=== PATIENT | female | born 1965 | race African-American/Black ===

== ENCOUNTER 2016-08-14 18:03 | Emergency (ER) | payer MEDICARE ==
[2016-08-14] MEDS ORDERED: IBUPROFEN 600 MG TABLET PO ONE (18:45)
--- NOTE | 2016-08-14 18:48 | ER Document Report ---
ED Fall - General Stated Complaint: FELL/SIDE PAIN Time seen by provider: 18:46 Mode of Arrival: Ambulatory Information source: Patient TRAVEL OUTSIDE OF THE [place] IN LAST 30 DAYS: No - HPI Patient complains to provider of: trip and fall, left shoulder and left rib pain Occurred: This morning Where: Home Context: Tripped Associated symptoms: None Location of injury/pain: Chest, Shoulder Quality of pain: Achy Severity: Moderate Pain Level: 2 Notes: Patient is a 51-year-old female who presents to the emergency room status post trip and fall this morning, injuring her left shoulder and left chest wall, complains of pain with movement, palpation, deep breathing, denies head injury or loss of consciousness, no nausea or vomiting, has a history of problems to the left shoulder prior to fall but is to be exacerbated after the fall - Related data Allergies/Adverse Reactions: aspirin [Aspirin] Allergy (Verified 08/14/16 18:47) Past Medical History - General Information source: Patient - Social History Smoking Status: Never Smoker Family History: Reviewed & Not Pertinent - Past Medical History Cardiac Medical History: Reports: Hx Hypertension Pulmonary Medical History: Reports: Hx Asthma Neurological Medical History: Reports: Hx Migraine, Hx Seizures Musculoskeltal Medical History: Reports Hx Arthritis Past Surgical History: Reports: Hx Neurologic Surgery - 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 - Immunizations Hx Diphtheria, Pertussis, Tetanus Vaccination: Yes - unk Review of Systems - Review of Systems Constitutional: No symptoms reported EENT: No symptoms reported Cardiovascular: No symptoms reported Respiratory: No symptoms reported Gastrointestinal: No symptoms reported Genitourinary: No symptoms reported Female Genitourinary: No symptoms reported Musculoskeletal: See HPI Skin: No symptoms reported Hematologic/Lymphatic: No symptoms reported Neurological/Psychological: No symptoms reported -: Yes All other systems reviewed and negative Physical Exam - Vital signs Vitals: Temp Pulse Resp BP Pulse Ox 98.5 F 71 16 124/74 100 08/14/16 18:44 08/14/16 18:44 08/14/16 18:44 08/14/16 18:44 08/14/16 18:44 Interpretation: Normal - General General appearance: Appears well, Alert - HEENT Head: Normocephalic, Atraumatic Eyes: Normal Pupils: PERRL - Respiratory Respiratory status: No respiratory distress Chest status: Tender - To palpate left anterior and lateral chest wall in the lower rib cage Breath sounds: Normal Chest palpation: Normal - Cardiovascular Rhythm: Regular Heart sounds: Normal auscultation Murmur: No - Abdominal Inspection: Normal Distension: No distension Bowel sounds: Normal Tenderness: Nontender Organomegaly: No organomegaly - Back Back: Normal, Nontender - Extremities General upper extremity: Normal color, Normal temperature General lower extremity: Normal inspection, Nontender, Normal color, Normal ROM , Normal temperature, Normal weight bearing. No: Henry's sign Shoulder: Tender - To palpate over AC joint of left shoulder, pain with range of motion testing - Neurological Neuro grossly intact: Yes Cognition: Normal Orientation: AAOx4 [place] Coma Scale Eye Opening: Spontaneous [place] Coma Scale Verbal: Oriented [place] Coma Scale Motor: Obeys Commands [place] Coma Scale Total: 15 Speech: Normal Motor strength normal: LUE, RUE, LLE, RLE Sensory: Normal - Psychological Associated symptoms: Normal affect, Normal mood - Skin Skin Temperature: Warm Skin Moisture: Dry Skin Color: Normal Course - Re-evaluation Re-evalutation: 08/14/16 19:18 Physical exam findings consistent with contusion and left shoulder strain, imaging shows no evidence of fracture or dislocation, patient will be discharged with pain medication and information for follow-up, advised to return if symptoms worsen, patient acknowledges understanding and agreement with this plan - Vital Signs Vital signs: Temp Pulse Resp BP Pulse Ox 98.5 F 71 16 124/74 100 08/14/16 18:44 08/14/16 18:44 08/14/16 18:44 08/14/16 18:44 08/14/16 18:44 - Diagnostic Test Radiology reviewed: Image reviewed, Reports reviewed Discharge - Discharge Clinical Impression: Left shoulder strain Qualifiers: Encounter type: initial encounter Qualified Code(s): S46.912A - Strain of unspecified muscle, fascia and tendon at shoulder and upper arm level, left arm , initial encounter Contusion of rib on left side Qualifiers: Encounter type: initial encounter Qualified Code(s): S20.212A - Contusion of left front wall of thorax, initial encounter Condition: Stable Disposition: HOME, SELF-CARE Instructions: Shoulder Injury ([facility]), Rib Contusion ([facility]), Oral Narcotic Medication ([facility]) Additional Instructions: Follow up with your primary care provider in one to 2 days. Return to the emergency room immediately if symptoms worsen or any additional concerns. Prescriptions: Hydrocodone/Acetaminophen [Hydrocodon-Acetaminophen 5-325] 1 each PO Q6 #20 tablet Forms: Return to Work
[2016-08-14 18:51] VITALS: BP 124/74
[2016-08-14] MEDS ORDERED: HYDROCODONE/ACETAMINOPHEN 5-325 MG 6 TAB/DSPK PO PRN (19:18)
== END 2016-08-14 19:33 | disposition home or self-care (01) ==
LOC: ER 18:03
DX: S46.912A Strain of unspecified muscle, fascia and tendon at shoulder and upper arm level, left arm, initial encounter (principal); S20.212A Contusion of left front wall of thorax, initial encounter; R52 Pain, unspecified; M25.512 Pain in left shoulder; R07.81 Pleurodynia; W19.XXXA Unspecified fall, initial encounter
CPT/HCPCS: 99284; 71101; 73030; A9270 ×2

== ENCOUNTER 2017-01-07 11:17 | Emergency (ER) | payer MEDICARE, MEDICAID ==
--- NOTE | 2017-01-07 12:19 | ER Document Report ---
ED Medical Screen (RME) - General Chief Complaint: Chest Pain Stated Complaint: CHEST PAIN Time Seen by Provider: 01/07/17 12:17 Mode of Arrival: Ambulatory Information source: Patient Notes: 51-year-old female with a history of hypertension, asthma, arthritis, seizures and migraines who presents to the emergency room with intermittent left chest pain radiating down the arm sometimes associated with shortness of breath. Patient cannot say whether there is an exertional component. She states the pain happens at any time. She does have an EKG which is sinus rhythm there are inverted T waves anteriorly which are old. TRAVEL OUTSIDE OF THE [place] IN LAST 30 DAYS: No - Related Data Allergies/Adverse Reactions: aspirin [Aspirin] Allergy (Verified 08/14/16 18:47) Past Medical History - Social History Chew tobacco use (# tins/day): No Frequency of alcohol use: None Drug Abuse: None - Past Medical History Cardiac Medical History: Reports: Hx Hypertension Pulmonary Medical History: Reports: Hx Asthma Neurological Medical History: Reports: Hx Migraine, Hx Seizures Renal/ Medical History: Denies: Hx Peritoneal Dialysis Musculoskeltal Medical History: Reports Hx Arthritis Past Surgical History: Reports: Hx Neurologic Surgery - 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 - Immunizations Hx Diphtheria, Pertussis, Tetanus Vaccination: Yes - unk Physical Exam - Vital signs Vitals: Temp Pulse Resp BP Pulse Ox 98.5 F 75 16 127/69 H 97 01/07/17 11:27 01/07/17 11:27 01/07/17 11:27 01/07/17 11:27 01/07/17 11:27 Course - Vital Signs Vital signs: Temp Pulse Resp BP Pulse Ox 98.5 F 75 16 127/69 H 97 01/07/17 11:27 01/07/17 11:27 01/07/17 11:27 01/07/17 11:27 01/07/17 11:27
--- NOTE | 2017-01-07 12:45 | ER Document Report ---
ED Cardiac - General Mode of Arrival: Ambulatory TRAVEL OUTSIDE OF THE [place] IN LAST 30 DAYS: No <VINICIUS MACIAS - Last Filed: 01/07/17 12:40> <ADDI MAGAÑA - Last Filed: 01/07/17 15:07> - General Chief Complaint: Chest Pain Stated Complaint: CHEST PAIN Time Seen by Provider: 01/07/17 12:17 Notes: Patient is a 51 year old female who presents to the ED with complaints of intermittent chest pain x2 days. Patient also complains of left arm pain that has worsened in the past 3 days. Patient denies any known injury. No other concerns or complaints. PCP: Dr. Moe (VINICIUS MACIAS) - Related Data Allergies/Adverse Reactions: aspirin [Aspirin] Allergy (Verified 01/07/17 14:44) Past Medical History - General Information source: Patient - Social History Smoking Status: Never Smoker Chew tobacco use (# tins/day): No Frequency of alcohol use: None Drug Abuse: None Family History: Reviewed & Not Pertinent Patient has suicidal ideation: No Patient has homicidal ideation: No - Past Medical History Cardiac Medical History: Reports: Hx Hypertension, Hx Pulmonary Embolism Pulmonary Medical History: Reports: Hx Asthma Neurological Medical History: Reports: Hx Migraine, Hx Seizures Renal/ Medical History: Denies: Hx Peritoneal Dialysis Musculoskeltal Medical History: Reports Hx Arthritis Past Surgical History: Reports: Hx Neurologic Surgery - 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 - Immunizations Hx Diphtheria, Pertussis, Tetanus Vaccination: Yes - unk <VINICIUS MACIAS - Last Filed: 01/07/17 12:40> Review of Systems - Review of Systems Constitutional: No symptoms reported EENT: No symptoms reported Cardiovascular: See HPI, Chest pain Respiratory: No symptoms reported Gastrointestinal: No symptoms reported Genitourinary: No symptoms reported Female Genitourinary: No symptoms reported Musculoskeletal: See HPI, Other - left arm pain Skin: No symptoms reported Hematologic/Lymphatic: No symptoms reported Neurological/Psychological: No symptoms reported <VINICIUS MACIAS - Last Filed: 01/07/17 12:40> Physical Exam - Vital signs Interpretation: Normal - General General appearance: Appears well, Alert In distress: None - HEENT Head: Normocephalic, Atraumatic Eyes: Normal Extraocular movements intact: Yes Pupils: PERRL - Respiratory Respiratory status: No respiratory distress Chest status: Tender - posterior chest wall very tender Breath sounds: Normal Chest palpation: Tender - chest wall tenderness - Cardiovascular Rhythm: Regular Heart sounds: Normal auscultation Murmur: No - Abdominal Inspection: Normal Distension: No distension Tenderness: Nontender - Back Back: Normal, Nontender - Extremities General upper extremity: Normal inspection, Normal ROM, Other - posterior right cervical muscle tender to palpation, right deltoid and trapezius muscles very tender to palpation, right forearm very tender to palpation; joints are not swollen, no effusions. No: Edema General lower extremity: Normal inspection, Normal ROM. No: Edema - Neurological Neuro grossly intact: Yes Cognition: Normal Orientation: AAOx4 [place] Coma Scale Eye Opening: Spontaneous [place] Coma Scale Verbal: Oriented [place] Coma Scale Motor: Obeys Commands [place] Coma Scale Total: 15 Speech: Normal - Psychological Associated symptoms: Normal affect, Normal mood - Skin Skin Temperature: Warm Skin Moisture: Dry Skin Color: Normal <VINICIUS MACIAS - Last Filed: 01/07/17 12:40> - Extremities General upper extremity: Other - posterior cervical muscles tender to palpation , both deltoid and trapezius muscles very tender to palpation, left forearm very tender to palpation; joints are not swollen, no effusions <ADDI MAGAÑA - Last Filed: 01/07/17 15:07> - Vital signs Vitals: Temp Pulse Resp BP Pulse Ox 98.5 F 75 16 127/69 H 97 01/07/17 11:27 01/07/17 11:27 01/07/17 11:27 01/07/17 11:27 01/07/17 11:27 Course - Laboratory Result Diagrams: 01/07/17 13:29 01/07/17 13:29 <ADDI MAGAÑA - Last Filed: 01/07/17 15:07> - Vital Signs Vital signs: Temp Pulse Resp BP Pulse Ox 98.6 F 75 11 L 115/77 100 01/07/17 14:00 01/07/17 11:27 01/07/17 14:01 01/07/17 14:00 01/07/17 14:01 - Laboratory Laboratory results interpreted by me: 01/07/17 01/07/17 01/07/17 12:05 13:29 13:29 Hgb 11.8 L Hct 35.3 L Potassium 3.4 L Total Protein 8.4 H Ur Leukocyte Esterase TRACE H Discharge <JESSICA MACIASANDRA - Last Filed: 01/07/17 12:40> <ADDI MAGAÑA - Last Filed: 01/07/17 15:07> - Discharge Clinical Impression: Chest wall pain, Trapezius muscle pain, Deltoid muscle pain Condition: Stable Disposition: HOME, SELF-CARE Additional Instructions: Chest Wall Pain: Your chest pain has been diagnosed as coming from the chest wall. This is often caused by straining the muscles or joints in the chest during physical activity, direct trauma, coughing, or vigorous vomiting. Persons with arthritis are especially prone to this type of pain, due to inflammation of the cartilage joints near the breast bone. Occasionally, no cause can be found. Rest from strenuous physical activity. This kind of chest pain is usually made worse by movement of the chest. Depending on the symptoms, we may prescribe medicine for pain, muscle relaxation, and antiinflammatory effects. If the pain is new, and seems to be due to muscle strain, cold packs can help. Otherwise, apply gentle warmth to the painful area for 15 minutes every hour or two. You should contact the doctor immediately if things change. Further evaluation is needed if you develop a fever or cough, if the nature of the pain changes, or if you become short of breath. //////////////////////////////////////////////////////////////////////////////// //////////////////////////////////////////////////////////////////////////////// /////////////////// Your EKG, chest x-ray, and lab work are all unremarkable. Your pain seems to be coming from the muscles and your chest wall and your neck and shoulders. The management of this should include moist heat, rest, and Tylenol for pain. Follow-up with your primary care provider if not improving. RETURN TO THE EMERGENCY ROOM IF ANY NEW OR WORSENING SYMPTOMS. Referrals: SANTY MOE MD [Primary Care Provider] - Follow up as needed Scribe Attestation: 01/07/17 15:00 I personally performed the services described in the documentation, reviewed and edited the documentation which was dictated to the scribe in my presence, and it accurately records my words and actions. (ADDI MAGAÑA) Scribe Documentation - Scribe Written by Ann:: ann Dye, 01/07/2017, 1246 acting as scribe for :: Antonietta <VINICIUS MACIAS - Last Filed: 01/07/17 12:40>
[2017-01-07 13:05] LABS: APPEARANCE,URINE SLIGHTLY-CLOUDY; BILIRUBIN,URINE NEGATIVE (NEGATIVE); GLUCOSE, URINE NEGATIVE (NEGATIVE); KETONES,URINE NEGATIVE (NEGATIVE); LEUKOCYTE ESTERASE,URINE TRACE (NEGATIVE); NITRITE,URINE NEGATIVE (NEGATIVE); PROTEIN,URINE NEGATIVE (NEGATIVE); URINE SPECIFIC GRAVITY 1.017; UROBILINOGEN,URINE NEGATIVE mg/dL (<2.0)
--- NOTE | 2017-01-07 13:23 | RADIOLOGY REPORT (SQ) ---
EXAM DESCRIPTION: CHEST SINGLE VIEW COMPLETED DATE/TIME: 01/07/2017 1:07 pm REASON FOR STUDY: cp COMPARISON: 09/08/2015 EXAM PARAMETERS: NUMBER OF VIEWS: One view. TECHNIQUE: Single frontal radiographic view of the chest acquired. RADIATION DOSE: NA LIMITATIONS: None. FINDINGS: LUNGS AND PLEURA: Stable scarring left lung base. No new opacities, masses or pneumothora x. No pleural effusion. MEDIASTINUM AND HILAR STRUCTURES: No masses. Contour normal. HEART AND VASCULAR STRUCTURES: Heart normal in size. Normal vasculature. BONES: No acute findings. HARDWARE: None in the chest. OTHER: No other significant finding. IMPRESSION: NO ACUTE RADIOGRAPHIC FINDING IN THE CHEST. NO SIGNIFICANT CHANGE FROM PRIOR STUDY. TECHNICAL DOCUMENTATION: JOB ID: [id number]
[2017-01-07 13:44] LABS: HEMATOCRIT 35.3 % (36.0-47.0); HEMOGLOBIN 11.8 g/dL (12.0-15.5); HGB HCT DIFFERENCE 0.1; MEAN CORPUSCULAR HEMOGLOBIN 30.7 pg (27.0-33.4); MEAN CORPUSCULAR HGB CONC 33.6 g/dL (32.0-36.0); MEAN CORPUSCULAR VOLUME 92 fl (80-97); RED BLOOD COUNT 3.85 10^6/uL (3.72-5.28); RED CELL DISTRIBUTION WIDTH 13.4 % (11.5-14.0)
[2017-01-07 13:45] LABS: ABSOLUTE EOSINOPHILS # (AUTO) 0.2 10^3/uL (0.0-0.6); ABSOLUTE LYMPHOCYTES (AUTO) 1.5 10^3/uL (0.5-4.7); ABSOLUTE MONOCYTES (AUTO) 0.3 10^3/uL (0.1-1.4); ABSOLUTE NEUT (AUTO) 3.9 10^3/uL (1.7-8.2); BASOPHILS % (AUTO) 0.5 % (0-2); EOSINOPHILS % (AUTO) 2.8 % (0-6); LYMPHOCYTES % (AUTO) 25.3 % (13-45); MONOCYTES % (AUTO) 5.8 % (3-13); SEGMENTED NEUTROPHILS % (AUTO) 65.6 % (42-78)
--- NOTE | 2017-01-07 13:51 | EKG REPORT ---
SEVERITY:- ABNORMAL ECG - SINUS RHYTHM ABNORMAL T, CONSIDER ISCHEMIA, ANT-LAT LEADS : Confirmed by: Chantale Vance MD 07-Jan-2017 13:50:01
[2017-01-07 14:06] LABS: ALANINE AMINOTRANSFERASE 31 U/L (9-52); ALKALINE PHOSPHATASE 111 U/L (38-126); ANION GAP 9 (5-19); ASPARTATE AMINO TRANSFERASE 21 U/L (14-36); BILIRUBIN,DIRECT 0.3 mg/dL (0.0-0.4); BILIRUBIN,TOTAL 0.6 mg/dL (0.2-1.3); BLOOD UREA NITROGEN 12 mg/dL (7-20); CALCIUM 9.4 mg/dL (8.4-10.2); CARBON DIOXIDE 30 mmol/L (22-30); CHLORIDE 102 mmol/L (98-107); CREATINE KINASE 96 U/L (30-135); CREATININE RESULT 0.85 mg/dL (0.52-1.25); GLUCOSE 86 mg/dL (75-110); POTASSIUM 3.4 mmol/L (3.6-5.0); SODIUM 141.2 mmol/L (137-145); TOTAL PROTEIN 8.4 g/dL (6.3-8.2)
[2017-01-07 14:19] LABS: CREATINE KINASE MB 0.31 ng/mL (<4.55); TROPONIN I < 0.012 ng/mL
[2017-01-07 15:15] VITALS: BP 103/61
== END 2017-01-07 15:15 | disposition home or self-care (01) ==
LOC: ER 11:17
DX: R07.89 Other chest pain (principal); M79.1 Myalgia; I10 Essential (primary) hypertension; Z88.6 Allergy status to analgesic agent; Z86.711 Personal history of pulmonary embolism; Z87.820 Personal history of traumatic brain injury
CPT/HCPCS: 36415; 71010; 80053; 81001; 82550; 82553; 84484; 85025; 85379; 93005; 93010; 99285

== ENCOUNTER 2017-02-25 12:37 | Emergency (ER) | payer MEDICARE, MEDICAID ==
[2017-02-25 12:44] VITALS: BP 128/81
--- NOTE | 2017-02-25 13:14 | ER Document Report ---
ED Seizure - General Chief Complaint: Probable Seizure Stated Complaint: POSSIBLE SEIZURE Time Seen by Provider: 02/25/17 13:02 Mode of Arrival: Ambulatory Information source: Patient, [facility] Records Notes: This 51-year-old female patient comes emergency room complaining of probable seizure in her sleep. She does have seizure disorder since a traumatic brain injury in the past. She takes Vimpat 200 mg twice daily but has run out of the medication for 3 days. She reports the medication is at the pharmacy but her doctor did not send in the prescription so she cannot get the prescription filled. 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 She woke up sore and aching on the right side of her body with a headache. She reports this is consistent with having had a seizure where she will turn her head to the right and jerk. Other than soreness and headache related to the seizure, she feels well and really only needs the Vimpat prescription so she can get started on medication today. - Related Data Allergies/Adverse Reactions: aspirin [Aspirin] Allergy (Verified 02/25/17 12:41) Past Medical History - General Information source: Patient, [facility] Records - Social History Smoking Status: Never Smoker Cigarette use (# per day): No Chew tobacco use (# tins/day): No Smoking Education Provided: No Frequency of alcohol use: None Drug Abuse: None Occupation: Works at [employer] Lives with: Family Family History: Reviewed & Not Pertinent - Past Medical History Cardiac Medical History: Reports: Hx Hypertension, Hx Pulmonary Embolism Pulmonary Medical History: Reports: Hx Asthma Neurological Medical History: Reports: Hx Migraine, Hx Seizures, Other - TBI Endocrine Medical History: Reports: None GI Medical History: Reports: None Musculoskeltal Medical History: Reports Hx Arthritis Psychiatric Medical History: Reports: None Past Surgical History: Reports: Hx Neurologic Surgery - 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 - Immunizations Hx Diphtheria, Pertussis, Tetanus Vaccination: No - unk Review of Systems - Review of Systems Constitutional: No symptoms reported EENT: No symptoms reported Cardiovascular: No symptoms reported Respiratory: No symptoms reported Gastrointestinal: No symptoms reported Genitourinary: No symptoms reported Female Genitourinary: Post menopausal Musculoskeletal: See HPI Skin: No symptoms reported Hematologic/Lymphatic: No symptoms reported Neurological/Psychological: Seizure Physical Exam - Vital signs Vitals: Temp Pulse Resp BP Pulse Ox 98.4 F 76 20 128/81 H 98 02/25/17 12:43 02/25/17 12:43 02/25/17 12:43 02/25/17 12:43 02/25/17 12:43 Interpretation: Normal - General General appearance: Appears well, Alert In distress: None - HEENT Head: Normocephalic, Atraumatic Eyes: Normal Pupils: PERRL Mouth/Lips: No: Laceration Neck: Other - Right posterior cervical and trapezius muscles very tender to palpate. - Respiratory Respiratory status: No respiratory distress Breath sounds: Normal - Cardiovascular Rhythm: Regular Heart sounds: Normal auscultation Murmur: No - Abdominal Inspection: Obese Bowel sounds: Normal Tenderness: Nontender - Back Back: Tender - Right trapezius muscle tenderness - Extremities General upper extremity: Other - Some right shoulder tenderness General lower extremity: Normal inspection - Neurological Neuro grossly intact: Yes - Psychological Associated symptoms: Normal affect, Normal mood - Skin Skin Temperature: Warm Skin Moisture: Dry Skin Color: Normal Course - Vital Signs Vital signs: Temp Pulse Resp BP Pulse Ox 98.4 F 76 20 128/81 H 98 02/25/17 12:43 02/25/17 12:43 02/25/17 12:43 02/25/17 12:43 02/25/17 12:43 Discharge - Discharge Clinical Impression: Seizure, Has run out of medications Condition: Stable Disposition: HOME, SELF-CARE Additional Instructions: Get the prescription for your Vimpat filled and start taking it. Rest today. Follow-up with your doctor if any problems. RETURN TO THE EMERGENCY ROOM IF ANY NEW OR WORSENING SYMPTOMS. Prescriptions: Lacosamide [Vimpat] 200 mg PO Q12 #60 tablet
== END 2017-02-25 13:14 | disposition home or self-care (01) ==
LOC: ER 12:37
DX: R56.9 Unspecified convulsions (principal); M79.1 Myalgia; R51 Headache; Z87.820 Personal history of traumatic brain injury; Z88.6 Allergy status to analgesic agent; I10 Essential (primary) hypertension; Z86.711 Personal history of pulmonary embolism; Z91.14 Patient's other noncompliance with medication regimen
CPT/HCPCS: 99281

== ENCOUNTER 2017-05-17 09:10 | Emergency (ER) | payer MEDICARE, MEDICAID ==
[2017-05-17] MEDS ORDERED: ACETAMINOPHEN 325 MG TABLET PO ONE (09:46)
--- NOTE | 2017-05-17 10:38 | RADIOLOGY REPORT (SQ) ---
EXAM DESCRIPTION: T SPINE AP/LAT COMPLETED DATE/TIME: 05/17/2017 10:25 am REASON FOR STUDY: low back pain COMPARISON: None. NUMBER OF VIEWS: Two views. TECHNIQUE: AP and lateral radiographic images acquired of the thoracic spine. LIMITATIONS: None. FINDINGS: MINERALIZATION: Normal. ALIGNMENT: Normal. No scoliosis. VERTEBRAE: No fracture or bone lesion. Maintained height, normal segmentation. DISCS: No significant loss of height or significant narrowing. No large osteophytes. HARDWARE: None in the spine. MEDIASTINUM AND SOFT TISSUES: Normal heart size and aortic contour. No soft tissue abnormality. VISUALIZED LUNG BABIN: Clear. OTHER: No other significant finding. IMPRESSION: NO SIGNIFICANT RADIOGRAPHIC FINDING IN THE THORACIC SPINE. TECHNICAL DOCUMENTATION: JOB ID: [id number] [employer]- All Rights Reserved
--- NOTE | 2017-05-17 10:40 | RADIOLOGY REPORT (SQ) ---
EXAM DESCRIPTION: L SPINE WHOLE COMPLETED DATE/TIME: 05/17/2017 10:25 am REASON FOR STUDY: low back pain COMPARISON: None. NUMBER OF VIEWS: Five views including obliques. TECHNIQUE: AP, lateral, oblique, and sacral radiographic images acquired of the lumbar spine. LIMITATIONS: None. FINDINGS: MINERALIZATION: Normal. SEGMENTATION: Normal. No transitional anatomy. ALIGNMENT: Normal. VERTEBRAE: Maintained height. No fracture or worrisome bone lesion. DISCS: Preserved height. No significant osteophytes or end plate irregularity. POSTERIOR ELEMENTS: Pedicles and facets are intact. No pars defect or posterior arch defects. HARDWARE: None in the spine. PARASPINAL SOFT TISSUES: Normal. PELVIS: Intact as visualized. No fractures or worrisome bone lesions. SI joints intact. OTHER: No other significant finding. IMPRESSION: No significant findings. TECHNICAL DOCUMENTATION: JOB ID: [id number] [employer]- All Rights Reserved
[2017-05-17 10:43] LABS: APPEARANCE,URINE SLIGHTLY-CLOUDY; BILIRUBIN,URINE NEGATIVE (NEGATIVE); GLUCOSE, URINE NEGATIVE (NEGATIVE); KETONES,URINE NEGATIVE (NEGATIVE); LEUKOCYTE ESTERASE,URINE SMALL (NEGATIVE); NITRITE,URINE NEGATIVE (NEGATIVE); PROTEIN,URINE NEGATIVE (NEGATIVE); URINE SPECIFIC GRAVITY 1.018; UROBILINOGEN,URINE NEGATIVE mg/dL (<2.0)
--- NOTE | 2017-05-17 11:20 | ER Document Report ---
HPI - HPI Patient complains to provider of: Low back pain, left upper arm pain Onset: Last week Onset/Duration: Persistent Quality of pain: Achy Pain Level: 3 Context: Patient presents complaining of right lower back pain for the past week. Patient states that her pain symptoms are worse at night when she lies down. Patient denies any urinary retention or incontinence. Patient denies any dysuria. Patient denies any fever. Patient additionally reports left upper extremity arm pain that radiates down to the level of her wrist that has been off and on for several years. Patient denies any new injury to the left arm. Patient states pain is typical of flareups that she has had in the past. Associated Symptoms: Other - Left upper extremity pain, right lower back pain. denies: Fever, Headache Exacerbated by: Supine, Movement Relieved by: Denies Similar symptoms previously: Yes Recently seen / treated by doctor: No - ROS ROS below otherwise negative: Yes Systems Reviewed and Negative: Yes All other systems reviewed and negative - CONSTITUTIONAL Constitutional: DENIES: Fever, Chills - EENT EENT: DENIES: Sore Throat, Ear Pain, Eye problems - NEURO Neurology: DENIES: Headache, Weakness, Vision blurred, Dizzinesss / Vertigo - CARDIOVASCULAR Cardiovascular: DENIES: Chest pain - RESPIRATORY Respiratory: DENIES: Trouble Breathing, Coughing - GASTROINTESTINAL Gastrointestinal: DENIES: Abdominal Pain, Black / Bloody Stools - URINARY Urinary: DENIES: Dysuria, Urgency, Frequency - REPRODUCTIVE Reproductive: DENIES: : - MUSCULOSKELETAL Musculoskeletal: REPORTS: Extremity pain - lt shoulder/arm, Back Pain. 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 Family History: Reviewed & Not Pertinent Patient has suicidal ideation: No Patient has homicidal ideation: No - Past Medical History Cardiac Medical History: Reports: Hx Hypertension, Hx Pulmonary Embolism Pulmonary Medical History: Reports: Hx Asthma Neurological Medical History: Reports: Hx Migraine, Hx Seizures Renal/ Medical History: Denies: Hx Peritoneal Dialysis Musculoskeltal Medical History: Reports Hx Arthritis Past Surgical History: Reports: 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 HEAD: Atraumatic, normocephalic. EYES: sclera clear, anicteric, conjunctiva are normal. ENT: nares patent, Moist mucous membranes. NECK: Normal range of motion, supple no lymphadenopathy LUNGS: respirations unlabored HEART: Regular rate and rhythm without murmurs EXTREMITIES: Normal range of motion, no pitting or edema. No cyanosis. Gait normal, pt ambulates without difficulty. left upper extremity tenderness with range of motion of left shoulder joint, no crepitus, no deformity, no dislocation. BACK: Right thoracolumbar back tenderness, no midline tenderness, no deformities or step-offs. No CVA tenderness. No cervical midline tenderness, step-off or deformity NEUROLOGICAL: Cranial nerves grossly intact. Normal speech, normal gait. No saddle anesthesia. Normal strength to bilateral upper and lower extremities PSYCH: Normal mood, normal affect. SKIN: Warm, Dry, normal turgor, no rashes or lesions noted. - INFECTION CONTROL TRAVEL OUTSIDE OF THE [place] IN LAST 30 DAYS: No - RESPIRATORY O2 Sat by Pulse Oximetry: 97 Course - Vital Signs Vital signs: Temp Pulse Resp BP Pulse Ox 98.1 F 73 20 122/75 97 05/17/17 09:29 05/17/17 09:29 05/17/17 09:29 05/17/17 09:29 05/17/17 09:29 - Laboratory Laboratory results interpreted by me: 05/17/17 09:50 Urine Blood SMALL H Ur Leukocyte Esterase SMALL H 05/17/17 21:12 Labs- Entire Visit 05/17/17 09:50 Urine Color YELLOW Urine Appearance SLIGHTLY-CLOUDY Urine pH 5.0 Ur Specific [place] 1.018 Urine Protein NEGATIVE Urine Glucose (UA) NEGATIVE Urine Ketones NEGATIVE Urine Blood SMALL H Urine Nitrite NEGATIVE Urine Bilirubin NEGATIVE Urine Urobilinogen NEGATIVE Ur Leukocyte Esterase SMALL H Urine WBC (Auto) 6 Urine RBC (Auto) 3 Urine Bacteria (Auto) TRACE Squamous Epi Cells Auto 1 Urine Mucus (Auto) RARE Urine Ascorbic Acid NEGATIVE - Diagnostic Test Radiology reviewed: Reports reviewed Discharge - Discharge Clinical Impression: Radicular pain in left arm Low back strain Qualifiers: Encounter type: initial encounter Qualified Code(s): S39.012A - Strain of muscle, fascia and tendon of lower back, initial encounter UTI (urinary tract infection) Qualifiers: Urinary tract infection type: site unspecified Hematuria presence: with hematuria Qualified Code(s): N39.0 - Urinary tract infection, site not specified Condition: Stable Disposition: HOME, SELF-CARE Instructions: Ice Packs ([facility]), Low Back Pain ([facility]), Oral Narcotic Medication ( [facility]), Radiculopathy ([facility]), Urinary Tract Infection ([facility]), Warm Packs ([facility]) Additional Instructions: Return immediately for any new or worsening symptoms Followup with your primary care provider, call tomorrow to make a followup appointment Follow-up with an orthopedic doctor for further evaluation of left upper extremity pain. Avoid heavy lifting Prescriptions: Cephalexin Monohydrate [Keflex 500 mg Capsule] 500 mg PO BID 7 Days capsule Hydrocodone/Acetaminophen [[place] 5-325 Tablet] 1 each PO Q4 PRN #15 tablet PRN Reason: Forms: Return to Work Referrals: SANTY CONTI MD [Primary Care Provider] - Follow up tomorrow [facility] [Provider Group] - Follow up as needed
[2017-05-17 11:34] VITALS: BP 116/73
== END 2017-05-17 11:35 | disposition home or self-care (01) ==
LOC: ER 09:10
DX: S39.012A Strain of muscle, fascia and tendon of lower back, initial encounter (principal); N39.0 Urinary tract infection, site not specified; M54.10 Radiculopathy, site unspecified; M79.602 Pain in left arm; X58.XXXA Exposure to other specified factors, initial encounter
CPT/HCPCS: 99283; 81001; 72110; 72070; A9270

== ENCOUNTER 2017-11-24 19:58 | Emergency (ER) | payer MEDICARE, MEDICAID ==
--- NOTE | 2017-11-24 22:14 | ER Document Report ---
HPI - HPI Patient complains to provider of: cough, headache, sinus pressure Pain Level: 4 Context: Patient is a 52-year-old female comes emergency department for chief complaint of congestion, headaches, cough for 1 week, she states her cough has become productive and worse and she became concerned and came in to be evaluated for possible pneumonia. She denies fever or chills, difficulty breathing. She denies smoking. She has a history of asthma but denies any wheezing, is not using her albuterol more than usual. Remaining medical history includes seizures and hypertension which she is medicated for. - REPRODUCTIVE Reproductive: DENIES: : Past Medical History - General Information source: Patient - Social History Smoking Status: Never Smoker Frequency of alcohol use: None Drug Abuse: None Lives with: Alone Family History: Reviewed & Not Pertinent - Past Medical History Cardiac Medical History: Reports: Hx Hypertension, Hx Pulmonary Embolism Pulmonary Medical History: Reports: Hx Asthma Neurological Medical History: Reports: Hx Migraine, Hx Seizures Renal/ Medical History: Denies: Hx Peritoneal Dialysis Musculoskeltal Medical History: Reports Hx Arthritis Past Surgical History: Reports: Hx Neurologic Surgery - 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 IN LAST 30 DAYS: No - HEENT HEENT: Atraumatic. negative: Normal ENT Exam - Patient was noted tenderness of the maxillary sinuses, no noted tenderness over the frontal sinuses, minimal erythema of the posterior pharynx with no tonsillar swelling, no uvular edema, no airway compromise. Normal oropharyngeal exam otherwise., Normocephalic - Patient has a scar on the mid upper forehead extending up to the scalp vertically, otherwise unremarkable, Tympanic Membrane Red, Tympanic Membrane Bulging - NECK Neck: Normal Inspection. negative: Lymphadenopathy-Left, Lymphadenopathy-Right - RESPIRATORY Respiratory: Breath Sounds Normal, No Respiratory Distress, Other - No signs of distress. Nonproductive cough. No rales, rhonchi, or wheezing. - CARDIOVASCULAR Cardiovascular: Regular Rate, Regular Rhythm - GI/ABDOMEN Gastrointestinal: Abdomen Soft, Abdomen Non-Tender - BACK Back: Normal Inspection - NEURO Level of Consciousness: Awake, Alert, Appropriate - DERM Integumentary: Warm, Dry, No Rash Course - Re-evaluation Re-evalutation: Chest x-ray unremarkable. Patient stating she cannot sleep because of coughing at night, she is coughed so hard she threw up once. She has no tachypnea, wheezing, respiratory distress, hypoxia. She is very tender sinuses. Appears to be sinusitis with bronchitis, treating with doxycycline because of one-week duration, patient has asthma treatments at home, providing with symptom management for coughing, discussed follow-up and return precautions, patient states understanding and agreement. - Vital Signs Vital signs: Temp Pulse Resp BP Pulse Ox 98.8 F 72 20 118/62 97 11/24/17 20:03 11/24/17 20:03 11/24/17 20:03 11/24/17 20:03 11/24/17 20:03 Discharge - Discharge Clinical Impression: Productive cough Sinusitis Qualifiers: Sinusitis location: maxillary Chronicity: acute Recurrence: non-recurrent Qualified Code(s): J01.00 - Acute maxillary sinusitis, unspecified Condition: Stable Disposition: HOME, SELF-CARE Additional Instructions: Your examination and workup are most consistent with sinusitis and bronchitis. No pneumonia seen. You have been started on antibiotics to cover for this sinus infection, continue albuterol as needed, take the medication prescribed at night for cough if needed, take Tessalon during the day as prescribed if needed for cough. Follow-up with primary care. Return if you worsen including difficulty breathing, spiking fever, severe headache, or any other concerning symptoms. Prescriptions: Hydrocodone Bit/Homatropine [Hycodan Syrup 5-1.5 mg/5 ml Ud Cup] 5 ml PO Q4HP PRN #120 ml PRN Reason: Benzonatate [Tessalon Perles 100 mg Capsule] 100 mg PO ASDIR PRN #20 capsule PRN Reason: Doxycycline Hyclate 100 mg PO BID #14 capsule Forms: Return to Work Referrals: SANTY CONTI MD [Primary Care Provider] - Follow up as needed
--- NOTE | 2017-11-24 22:42 | RADIOLOGY REPORT (SQ) ---
EXAM DESCRIPTION: XR CHEST 2 VIEWS CLINICAL HISTORY: 52 years Female, productive cough for 1 week COMPARISON: None. FINDINGS: Adequate lung volume, clear parenchyma, small atelectasis or scar of the left base, eventration of the right hemidiaphragm, normal cardiac silhouette, electronic stimulator at the left upper hemithorax with nuchal leads, and intact bony thorax. IMPRESSION: No acute cardiopulmonary findings.
[2017-11-24] MEDS ORDERED: HYDROCODONE/ACETAMINOPHEN 5-325 MG (6 TAB/ER DISP) PO PRN (23:41)
[2017-11-24] MEDS ORDERED: DOXYCYCLINE HYCLATE 100 MG TABLET PO ONE (23:41)
[2017-11-24 23:53] VITALS: BP 120/70
== END 2017-11-24 23:51 | disposition home or self-care (01) ==
LOC: ER 19:58
DX: R05 Cough (principal); J01.00 Acute maxillary sinusitis, unspecified; R51 Headache; J45.909 Unspecified asthma, uncomplicated; I10 Essential (primary) hypertension; R56.9 Unspecified convulsions; Z79.899 Other long term (current) drug therapy
CPT/HCPCS: 99283; 71046; A9270 ×2

== ENCOUNTER 2017-12-22 14:05 | Emergency (ER) | payer MEDICARE, MEDICAID ==
--- NOTE | 2017-12-22 14:35 | ER Document Report ---
ED Seizure - General Chief Complaint: Probable Seizure Stated Complaint: POSSIBLE SEIZURE Time Seen by Provider: 12/22/17 14:19 Notes: The patient is a 52-year-old female, past medical history seizure disorder, chronic headaches, hypertension, presents after a possible seizure overnight. She woke up and said her speech is slow. She says this is common for her after seizures, but it does not usually last this long. She is also having her usual posterior headache. She is prescribed Imitrex and tizanidine, but she does not think these medications work. Patient has not missed any doses of Vimpat or Keppra and her neurologist is Dr. Aldridge. She denies loss of bowel or bladder , fevers, blurry vision, focal weakness, numbness, tingling, neck stiffness, chest pain, shortness of breath or tongue injury. - Related Data Allergies/Adverse Reactions: aspirin [Aspirin] Allergy (Verified 12/22/17 14:07) Past Medical History - General Information source: Patient - Social History Smoking Status: Never Smoker Chew tobacco use (# tins/day): No Frequency of alcohol use: None Drug Abuse: None Family History: Reviewed & Not Pertinent Patient has suicidal ideation: No Patient has homicidal ideation: No - Past Medical History Cardiac Medical History: Reports: Hx Hypertension, Hx Pulmonary Embolism Pulmonary Medical History: Reports: Hx Asthma Neurological Medical History: Reports: Hx Migraine, Hx Seizures Renal/ Medical History: Denies: Hx Peritoneal Dialysis Musculoskeltal Medical History: Reports Hx Arthritis Past Surgical History: Reports: Hx Neurologic Surgery - 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 - Immunizations Hx Diphtheria, Pertussis, Tetanus Vaccination: No - unk Review of Systems - Review of Systems Notes: REVIEW OF SYSTEMS: CONSTITUTIONAL: -fevers, -chills EENT: -eye pain, -difficulty swallowing, -nasal congestion CARDIOVASCULAR: -chest pain, -syncope. RESPIRATORY: -cough, -SOB GASTROINTESTINAL: -abdominal pain, -nausea, -vomiting, -diarrhea GENITOURINARY: -dysuria, -hematuria MUSCULOSKELETAL: -back pain, -neck pain SKIN: -rash or skin lesions. HEMATOLOGIC: -easy bruising or bleeding. LYMPHATIC: -swollen, enlarged glands. NEUROLOGICAL: -altered mental status or loss of consciousness, +headache, + slowed speech PSYCHIATRIC: -anxiety, -depression. ALL OTHER SYSTEMS REVIEWED AND NEGATIVE. Physical Exam - Vital signs Vitals: Temp Pulse Resp BP Pulse Ox 98.6 F 70 16 125/62 97 12/22/17 14:17 12/22/17 14:17 12/22/17 14:17 12/22/17 14:17 12/22/17 14:17 - Notes Notes: PHYSICAL EXAMINATION: GENERAL: Well-appearing, well-nourished and in no acute distress. HEAD: Atraumatic, normocephalic. EYES: Pupils equal round and reactive to light, extraocular movements intact, sclera anicteric, conjunctiva are normal. ENT: nares patent, oropharynx clear without exudates. Moist mucous membranes. NECK: Normal range of motion, supple without lymphadenopathy LUNGS: Breath sounds clear to auscultation bilaterally and equal. No wheezes rales or rhonchi. HEART: Regular rate and rhythm without murmurs ABDOMEN: Soft, nontender, normoactive bowel sounds. No guarding, no rebound. No masses appreciated. EXTREMITIES: Normal range of motion, no pitting or edema. No cyanosis. NEUROLOGICAL: Cranial nerves grossly intact. Speech normal but slowed, normal gait. Normal sensory and motor exams. PSYCH: Normal mood, normal affect. SKIN: Warm, Dry, normal turgor, no rashes or lesions noted. Course - Re-evaluation Re-evalutation: Patient appears well. Blood work and CT head did not show any acute concerning abnormalities. She has no focal neuro deficits other than speech that is slowed. She frequently has this after her seizures. There is no slurring of her speech and she has no word finding difficulties to suggest an acute CVA. Her seizures have been well-controlled and last episode was several months ago. Instructed her to continue her Keppra and Vimpat and follow-up with her neurologist. - Vital Signs Vital signs: Temp Pulse Resp BP Pulse Ox 98.6 F 71 16 107/64 100 12/22/17 15:54 12/22/17 15:54 12/22/17 14:17 12/22/17 15:54 12/22/17 15:54 - Laboratory Result Diagrams: 12/22/17 14:50 Laboratory results interpreted by me: 12/22/17 14:50 Potassium 3.4 L Total Protein 8.4 H - Diagnostic Test Radiology reviewed: Image reviewed, Reports reviewed Radiology results interpreted by me: CT Head: NAD. Stable CT appearance of the brain demonstrating left frontal craniotomy, left frontal lobe encephalomalacia, and ex vacuo dilatation of the anterior horn of the left lateral ventricle. No evidence of acute calvarial injury or intracranial hemorrhage. EVIDENCE OF ACUTE STROKE: NO. Discharge - Discharge Clinical Impression: Recurrent seizures, Hypokalemia Headache Qualifiers: Headache type: unspecified Headache chronicity pattern: chronic headache Intractability: not intractable Qualified Code(s): R51 - Headache Condition: Stable Disposition: HOME, SELF-CARE Additional Instructions: HEADACHE: The physician does not feel that the headache you are experiencing has a serious underlying cause. Most headaches are due to emotional stress, with resultant muscle tension (tension headache). Occasionally, headaches are secondary to changes in the blood vessels of the scalp (vascular headache and migraine headache). Sometimes, a headache is the first symptom of another developing illness, such as a viral infection. You have no evidence of stroke, bleeding, meningitis, or other serious cause of your headache. The treatment of headaches varies with the severity and cause of the pain. Not all headaches need pain shots. In fact, there is evidence that using narcotics for headaches may make them worse in the long run. The physician will determine the therapy that's in your best interest. If you develop a fever, if the headache is different from any you've previously experienced, or if the headache progressively worsens, then call your physician at once or go to the emergency room. FOLLOW-UP CARE: If you have been referred to a physician for follow-up care, call the physician s office for an appointment as you were instructed or within the next two days. If you experience worsening or a significant change in your symptoms, notify the physician immediately or return to the Emergency Department at any time for re-evaluation. Seizure, Known Epileptic You have had a seizure. Seizures may "break through" in an epileptic due to stress of infection or injury, a change in blood chemistry, or drug and alcohol use. Another common cause is failure to take medication as prescribed. Your doctor has evaluated your situation for the likely cause of this seizure. It is important that you follow his advice concerning any medication changes and follow-up care. Further testing of anti-seizure medication levels in your blood may be necessary. 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 This seizure must be reported to the otr tanker truck driver 's license bureau. Call the doctor or return if seizures recur, or if new or unusual symptoms arise -- such as severe headache, confusion, excessive sleepiness, local weakness or numbness, neck stiffness, or fever. Referrals: SANTY CONTI MD [Primary Care Provider] - Follow up as needed RANULFO ALDRIDGE MD [NO LOCAL MD] - Follow up as needed
[2017-12-22 15:34] LABS: ALANINE AMINOTRANSFERASE 16 U/L (9-52); ALKALINE PHOSPHATASE 94 U/L (38-126); ANION GAP 13 (5-19); ASPARTATE AMINO TRANSFERASE 25 U/L (14-36); BILIRUBIN,DIRECT 0.4 mg/dL (0.0-0.4); BILIRUBIN,TOTAL 0.4 mg/dL (0.2-1.3); BLOOD UREA NITROGEN 11 mg/dL (7-20); CALCIUM 9.4 mg/dL (8.4-10.2); CARBON DIOXIDE 29 mmol/L (22-30); CHLORIDE 103 mmol/L (98-107); GLUCOSE 95 mg/dL (75-110); POTASSIUM 3.4 mmol/L (3.6-5.0); SODIUM 144.5 mmol/L (137-145); TOTAL PROTEIN 8.4 g/dL (6.3-8.2)
--- NOTE | 2017-12-22 15:40 | RADIOLOGY REPORT (SQ) ---
EXAM DESCRIPTION: CT HEAD WITHOUT COMPLETED DATE/TIME: 12/22/2017 3:14 pm REASON FOR STUDY: seizure, head injury COMPARISON: 04/22/2015 TECHNIQUE: Axial images acquired through the brain without intravenous contrast. Images reviewed wi th bone, brain and subdural windows. Additional sagittal and coronal reconstructions were generated. Images stored on PACS. All CT scanners at this facility use dose modulation, iterative reconstruction, and/or weight based d osing when appropriate to reduce radiation dose to as low as reasonably achievable (ALARA). [facility]: Dose Right [facility]: CareDose [facility]: Dose Right [facility]: Teradose 4D [facility]: Smart Skimbl RADIATION DOSE: CT Rad equipment meets quality standard of care and radiation dose reduction techniq ues were employed. CTDIvol: 53.2 mGy. DLP: 1017 mGy-cm. mGy. LIMITATIONS: None. FINDINGS: VENTRICLES: Ex vacuo dilatation of the anterior horn of the left lateral ventricle on the basis of encephalomalacia; this finding is not significantly changed in the study interval. CEREBRUM: No masses. No hemorrhage. No midline shift. No evidence for acute infarction. Left front al encephalomalacia, stable. CEREBELLUM: No masses. No hemorrhage. No alteration of density. No evidence for acute infarction. EXTRAAXIAL SPACES: No fluid collections. No masses. ORBITS AND GLOBE: No intra- or extraconal masses. Normal contour of globe without masses. CALVARIUM: Stable left frontal craniotomy changes. No acute fracture. PARANASAL SINUSES: No fluid or mucosal thickening. SOFT TISSUES: No mass or hematoma. OTHER: No other significant finding. IMPRESSION: Stable CT appearance of the brain demonstrating left frontal craniotomy, left frontal lo be encephalomalacia, and ex vacuo dilatation of the anterior horn of the left lateral ventricle. No evidence of acute calvarial injury or intracranial hemorrhage. EVIDENCE OF ACUTE STROKE: NO. COMMENT: Quality ID # [id number]: Final reports with documentation of one or more dose reduction techniques (e.g., Automated exposure control, adjustment of the mA and/or kV according to patient size, use of iterative reconstruction technique) TECHNICAL DOCUMENTATION: JOB ID: [id number] [employer]- All Rights Reserved Reading location - IP/workstation name: [email or web address]
[2017-12-22] MEDS ORDERED: POTASSIUM CHLORIDE 10 MEQ CAPSULE.ER PO ONE (15:44)
[2017-12-22 16:03] VITALS: BP 107/64
== END 2017-12-22 16:02 | disposition home or self-care (01) ==
LOC: ER 14:05
DX: R56.9 Unspecified convulsions (principal); E87.6 Hypokalemia; R51 Headache; I10 Essential (primary) hypertension
CPT/HCPCS: 99284; 36415; 80053; 70450; A9270

== ENCOUNTER 2019-04-14 15:30 | Emergency (ER) | payer MEDICARE, MEDICAID ==
[2019-04-14] MEDS ORDERED: KETOROLAC TROMETHAMINE INJ/PF 30 MG/1 ML SDV IV ONE (16:08)
--- NOTE | 2019-04-14 16:10 | ER Document Report ---
ED Medical Screen (RME) - General Chief Complaint: Chest Pain > 30 Stated Complaint: RIGHT SHOULDER PAIN Time Seen by Provider: 04/14/19 15:57 Primary Care Provider: SANTY CONTI MD [Primary Care Provider] - Follow up as needed Notes: Patient is a 53-year-old female who presents the emergency department with 2 different complaints. Her first complaint is right shoulder and right thigh pain. 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 Her second complaint is chest pain. Her chest pain started this morning. She describes her pain as a dull pain. She states that it is in the middle of her chest. Exam: S1, S2. Tenderness to right shoulder. I have greeted and performed a rapid initial assessment of this patient. A comprehensive ED assessment and evaluation of the patient, analysis of test results and completion of medical decision making process will be conducted by an additional ED providers. TRAVEL OUTSIDE OF THE [place] IN LAST 30 DAYS: No - Related Data Allergies/Adverse Reactions: aspirin [Aspirin] Allergy (Verified 12/22/17 14:07) Past Medical History - Social History Chew tobacco use (# tins/day): No Frequency of alcohol use: None Drug Abuse: None - Past Medical History Cardiac Medical History: Reports: Hx Hypertension, Hx Pulmonary Embolism Pulmonary Medical History: Reports: Hx Asthma Neurological Medical History: Reports: Hx Migraine, Hx Seizures Renal/ Medical History: Denies: Hx Peritoneal Dialysis Musculoskeltal Medical History: Reports Hx Arthritis Past Surgical History: Reports: Hx Neurologic Surgery - 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 - Immunizations Hx Diphtheria, Pertussis, Tetanus Vaccination: No - unk Physical Exam - Vital signs Vitals: Temp Pulse Resp BP Pulse Ox 98.2 F 70 18 145/76 H 100 04/14/19 15:43 04/14/19 15:43 04/14/19 15:43 04/14/19 15:43 04/14/19 15:43 Course - Vital Signs Vital signs: Temp Pulse Resp BP Pulse Ox 98.2 F 70 18 145/76 H 100 04/14/19 15:43 04/14/19 15:43 04/14/19 15:43 04/14/19 15:43 04/14/19 15:43 Doctor's Discharge - Discharge Referrals: SANTY CONTI MD [Primary Care Provider] - Follow up as needed
--- NOTE | 2019-04-14 16:38 | RADIOLOGY REPORT (SQ) ---
EXAM DESCRIPTION: FEMUR RIGHT COMPLETED DATE/TIME: 04/14/2019 4:30 pm REASON FOR STUDY: right thigh pain COMPARISON: None. NUMBER OF VIEWS: Two views. TECHNIQUE: Two radiographic images acquired of the right femur to include hip and knee in at least o ne projection. LIMITATIONS: None. FINDINGS: MINERALIZATION: Normal. BONES: No acute fracture. No worrisome bone lesions. SOFT TISSUES: No obvious swelling or foreign body. OTHER: No other significant finding. IMPRESSION: NO RADIOGRAPHIC EVIDENCE OF ACUTE INJURY. TECHNICAL DOCUMENTATION: JOB ID: [id number] [employer]- All Rights Reserved Reading location - IP/workstation name: [email or web address]
--- NOTE | 2019-04-14 16:39 | RADIOLOGY REPORT (SQ) ---
EXAM DESCRIPTION: CHEST SINGLE VIEW COMPLETED DATE/TIME: 04/14/2019 4:30 pm REASON FOR STUDY: chest pain COMPARISON: 11/24/2017 TECHNIQUE: Single frontal radiographic view of the chest acquired. NUMBER OF VIEWS: One view. LIMITATIONS: None. FINDINGS: LUNGS AND PLEURA: No pneumothorax. Similar left basilar scarring. No consolidation or pl eural effusion. MEDIASTINUM AND HILAR STRUCTURES: Stable. HEART AND VASCULAR STRUCTURES: Stable. BONES: No acute findings. HARDWARE: Cervical stimulator device. OTHER: No other significant finding. IMPRESSION: NO ACUTE FINDINGS. TECHNICAL DOCUMENTATION: JOB ID: [id number] [place]-72 2010 [employer]- All Rights Reserved Reading location - IP/workstation name: [email or web address]
--- NOTE | 2019-04-14 16:41 | RADIOLOGY REPORT (SQ) ---
EXAM DESCRIPTION: SHOULDER RIGHT 2 OR MORE VIEWS COMPLETED DATE/TIME: 04/14/2019 4:30 pm REASON FOR STUDY: shoulder pain COMPARISON: None. NUMBER OF VIEWS: Three views. TECHNIQUE: Internal rotation, external rotation, and Y view images acquired of the right shoulder. LIMITATIONS: None. FINDINGS: MINERALIZATION: Normal. BONES: No acute fracture. No worrisome bone lesions. JOINTS: No dislocation. VISUALIZED LUNGS AND RIBS: No pneumothorax. No rib fracture. SOFT TISSUES: No radiopaque foreign body. OTHER: No other significant finding. IMPRESSION: NO RADIOGRAPHIC EVIDENCE OF ACUTE INJURY. TECHNICAL DOCUMENTATION: JOB ID: [id number] [place]-72 2010 [employer]- All Rights Reserved Reading location - IP/workstation name: [email or web address]
[2019-04-14] MEDS ORDERED: KETOROLAC TROMETHAMINE 60 MG/2 ML SDV IM ONE (18:08)
[2019-04-14 18:56] LABS: ABSOLUTE BASOPHILS # (AUTO) 0.1 10^3/uL (0.0-0.2); ABSOLUTE EOSINOPHILS # (AUTO) 0.2 10^3/uL (0.0-0.6); ABSOLUTE LYMPHOCYTES (AUTO) 1.9 10^3/uL (0.5-4.7); ABSOLUTE MONOCYTES (AUTO) 0.4 10^3/uL (0.1-1.4); ABSOLUTE NEUT (AUTO) 4.9 10^3/uL (1.7-8.2); EOSINOPHILS % (AUTO) 2.6 % (0-6); HEMATOCRIT 36.3 % (36.0-47.0); HEMOGLOBIN 12.1 g/dL (12.0-15.5); LYMPHOCYTES % (AUTO) 25.6 % (13-45); MEAN CORPUSCULAR HEMOGLOBIN 30.2 pg (27.0-33.4); MEAN CORPUSCULAR HGB CONC 33.4 g/dL (32.0-36.0); MEAN CORPUSCULAR VOLUME 90 fl (80-97); MONOCYTES % (AUTO) 5.1 % (3-13); PLATELET COUNT 266 10^3/uL (150-450); RED BLOOD COUNT 4.03 10^6/uL (3.72-5.28); RED CELL DISTRIBUTION WIDTH 13.5 % (11.5-14.0); SEGMENTED NEUTROPHILS % (AUTO) 65.7 % (42-78); TOTAL CELLS COUNTED % (AUTO) 100 %; WHITE BLOOD COUNT 7.5 10^3/uL (4.0-10.5)
[2019-04-14 19:19] LABS: ALBUMIN 4.4 g/dL (3.5-5.0); ALKALINE PHOSPHATASE 96 U/L (38-126); ANION GAP 10 (5-19); ASPARTATE AMINO TRANSFERASE 21 U/L (14-36); BILIRUBIN,DIRECT 0.1 mg/dL (0.0-0.4); BILIRUBIN,TOTAL 0.5 mg/dL (0.2-1.3); BLOOD UREA NITROGEN 13 mg/dL (7-20); CALCIUM 9.8 mg/dL (8.4-10.2); CARBON DIOXIDE 31 mmol/L (22-30); CHLORIDE 99 mmol/L (98-107); CREATINE KINASE 78 U/L (30-135); GLUCOSE 74 mg/dL (75-110); POTASSIUM 3.6 mmol/L (3.6-5.0); TOTAL PROTEIN 8.9 g/dL (6.3-8.2)
[2019-04-14 19:38] LABS: CREATINE KINASE MB < 0.22 ng/mL (<4.55); TROPONIN I < 0.012 ng/mL
--- NOTE | 2019-04-14 19:48 | EKG REPORT ---
SEVERITY:- ABNORMAL ECG - SINUS RHYTHM NONSPECIFIC T ABNORMALITIES, ANTERIOR LEADS : Confirmed by: Melchor Witt MD 14-Apr-2019 19:47:00
--- NOTE | 2019-04-14 20:47 | ER Document Report ---
ED General - General Chief Complaint: Chest Pain > 30 Stated Complaint: RIGHT SHOULDER PAIN Time Seen by Provider: 04/14/19 15:57 Primary Care Provider: SANTY CONTI MD [Primary Care Provider] - Follow up as needed Notes: Patient is a 53-year-old female that comes to the emergency department for chief complaint of pain in her right shoulder, pain in her right thigh, and pain across her chest. She states she had a leave work today because of the soreness and pain. She states the pain in her right shoulder and right leg have been going on for over a year, intermittently worse like now. She does have a lot of pain moving the right arm and right leg especially in abduction. She also states she woke up with soreness across her chest, this is in the middle, this is also worse when she makes movements with her arms or twisting. 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 She denies shortness of breath at this time although she states she gets it intermittently. She denies fever/chills, nausea/vomiting. Past medical history includes asthma, hypertension, pulmonary embolism, TBI and seizures. She denies smoking. She states that she got a blood clot when she was , was on a blood thinner shortly after and then never needed it again. TRAVEL OUTSIDE OF THE [place] IN LAST 30 DAYS: No - Related Data Allergies/Adverse Reactions: aspirin [Aspirin] Allergy (Verified 12/22/17 14:07) Past Medical History - General Information source: Patient - Social History Smoking Status: Never Smoker Chew tobacco use (# tins/day): No Frequency of alcohol use: None Drug Abuse: None Lives with: Family Family History: Reviewed & Not Pertinent Patient has suicidal ideation: No Patient has homicidal ideation: No - Past Medical History Cardiac Medical History: Reports: Hx Hypertension, Hx Pulmonary Embolism Pulmonary Medical History: Reports: Hx Asthma Neurological Medical History: Reports: Hx Migraine, Hx Seizures Renal/ Medical History: Denies: Hx Peritoneal Dialysis Musculoskeletal Medical History: Reports Hx Arthritis Past Surgical History: Reports: Hx Neurologic Surgery - 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 - Immunizations Immunizations up to date: Yes Hx Diphtheria, Pertussis, Tetanus Vaccination: Yes - unk Review of Systems - Review of Systems Constitutional: No symptoms reported EENT: No symptoms reported Cardiovascular: See HPI Respiratory: No symptoms reported Gastrointestinal: No symptoms reported Genitourinary: No symptoms reported Female Genitourinary: No symptoms reported Musculoskeletal: See HPI Skin: No symptoms reported Hematologic/Lymphatic: No symptoms reported Neurological/Psychological: No symptoms reported Physical Exam - Vital signs Vitals: Temp Pulse Resp BP Pulse Ox 98.2 F 70 18 145/76 H 100 04/14/19 15:43 04/14/19 15:43 04/14/19 15:43 04/14/19 15:43 04/14/19 15:43 - Notes Notes: GENERAL: Alert, interacts well. No acute distress. HEAD: Normocephalic, atraumatic. EYES: Pupils equal, round, and reactive to light. Extraocular movements intact. ENT: Oral mucosa moist, tongue midline. Oropharynx unremarkable. Airway patent. NECK: Full range of motion. Supple. Trachea midline. LUNGS: Clear to auscultation bilaterally, no wheezes, rales, or rhonchi. No respiratory distress. Patient with tenderness with palpation over the chest, mainly on the right but also mildly on the left, this is very reproducible with movement as well. No crepitus or severe tenderness. HEART: Regular rate and rhythm. No murmur ABDOMEN: Soft, non-tender. Non-distended. Bowel sounds present in all 4 quadrants. GENITOURINARY: Deferred EXTREMITIES: Pain with palpation over the supraspinatus, posterior shoulder on the right side, pain with range of motion. Normal research microbiologist, normal distal neurovasc ular exam. Left arm is normal. Pain with palpation over the right bursa at the femoral area, mild pain down the IT band and over the thigh. No swelling, discoloration, or severe pain. Normal hip, knee, ankle exam, normal distal neurovascular exam. BACK: no cervical, thoracic, lumbar midline tenderness. No saddle anesthesia, normal distal neurovascular exam. Moves all extremities in full range of motion. NEUROLOGICAL: Alert and oriented x3. Normal speech. Cranial nerves II through XII grossly intact. PSYCH: Normal affect, normal mood. SKIN: Warm, dry, normal turgor. No rashes or lesions noted. Course - Re-evaluation Re-evalutation: Chest x-ray unremarkable, CBC, chemistry, troponin unremarkable. EKG without change from prior. Patient is very specific tenderness on exam. Patient states she still wants to be checked out, she used to be on a blood thinner for pulmonary embolism but did stop this. She does not have notable lower semi- swelling, tachycardia, tachypnea, however because of her chest pain and positive PE history a d-dimer was performed. Unfortunately this was positive, as result CTA was performed of the chest after discussion with patient, fortunately this was negative. I did discuss cardiomegaly on imaging. I discussed with patient at length. With 2 negative troponins, negative CT of the chest, and very specific muscular tenderness, patient is requesting discharge, work note so she can rest, and management of her symptoms. She states she will follow-up with her primary care and return if she worsens in any way. Stable at time of discharge. - Vital Signs Vital signs: Temp Pulse Resp BP Pulse Ox 98.5 F 69 16 136/86 H 98 04/15/19 01:41 04/15/19 01:41 04/15/19 01:41 04/15/19 01:41 04/15/19 01:41 - Laboratory Result Diagrams: 04/14/19 18:42 04/14/19 18:42 Laboratory results interpreted by me: 04/14/19 04/14/19 18:42 18:42 D-Dimer 0.58 H Carbon Dioxide 31 H Glucose 74 L Total Protein 8.9 H - Diagnostic Test Radiology results interpreted by me: EKG shows sinus rhythm at a rate of 68, QTC of 439, normal axis. There are some borderline inverted T waves in leads V2 and V3, however these are not new. No T wave inversions or ST segment changes in consecutive leads otherwise. No significant change from prior. Discharge - Discharge Clinical Impression: Right thigh pain, Right arm pain, Chest wall pain Chest pain Qualifiers: Chest pain type: unspecified Qualified Code(s): R07.9 - Chest pain, unspecified Condition: Stable Disposition: HOME, SELF-CARE Additional Instructions: Your work-up is reassuring, this appears to be the muscles of your shoulder, right thigh at the IT band, and chest wall. No signs of blood clot or heart attack were noted. I recommend heat to your tender areas, massage, the muscle relaxer as prescribed, [id number] anti-inflammatories, and rest. Follow- up with primary care for additional management. Come back if you are worse including difficulty breathing, fever, severe worsening pain or swelling, passing out, or any other concerning symptoms. Prescriptions: Cyclobenzaprine HCl [Flexeril 5 mg Tablet] 1 - 2 tab PO TID PRN #15 tablet PRN Reason: Forms: Return to Work Referrals: SANTY CONTI MD [Primary Care Provider] - Follow up as needed
--- NOTE | 2019-04-15 01:07 | RADIOLOGY REPORT (SQ) ---
CLINICAL HISTORY: elevated d-dimer 0.58, chest pain, hx PE COMPARISON: None. TECHNIQUE: CT CHEST ANGIOGRAPHY WITHOUT THEN WITH IV CONTRAST on 04/14/2019 10:24 PM CDT. MIPS reconstructions were generated. This exam was performed according to our departmental dose-optimization program, which includes automated exposure control, adjustment of the mA and/or kV according to patient size and/or use of iterative reconstruction technique. MIP images were generated. FINDINGS: Thoracic aorta is normal in course and caliber without aneurysm or dissection. Pulmonary arteries are adequately opacified without acute or chronic filling defects. The heart is enlarged. There is no pericardial effusion. Intrathoracic lymph nodes are not enlarged. There is no pleural effusion, pleural thickening or pneumothorax. Central airways are patent. There is bibasilar atelectasis and scarring. In the upper abdomen, there are multiple gallstones in the gallbladder. There are no acute osseous findings. No suspicious bony lesions. IMPRESSION: Cardiomegaly with no aortic dissection or aneurysm. No pulmonary embolus. No pneumonia.
[2019-04-15 01:43] VITALS: BP 136/86
== END 2019-04-15 01:41 | disposition home or self-care (01) ==
LOC: ER 15:30
DX: R07.89 Other chest pain (principal); M79.601 Pain in right arm; M79.651 Pain in right thigh; M25.511 Pain in right shoulder; R79.89 Other specified abnormal findings of blood chemistry; J45.909 Unspecified asthma, uncomplicated; I10 Essential (primary) hypertension; Z86.711 Personal history of pulmonary embolism; Z88.8 Allergy status to other drugs, medicaments and biological substances
CPT/HCPCS: 36415; 71045; 71275; 80053; 82550; 82553; 83735; 84484; 85025; 85379; 93005; 93010; 99284

== ENCOUNTER 2019-06-17 11:19 | Emergency (ER) | payer OTHER, MEDICARE, MEDICAID ==
[2019-06-17] MEDS ORDERED: ACETAMINOPHEN 325 MG TABLET PO ONE (11:29)
--- NOTE | 2019-06-17 11:33 | ER Document Report ---
HPI - HPI Patient complains to provider of: right knee pain, tailbone pain Time Seen by Provider: 06/17/19 11:24 Onset: This morning - 0400 Onset/Duration: Sudden Quality of pain: Achy Pain Level: 2 Context: 54-year-old female presents emergency department with complaints of tailbone and right knee pain. Reports she slipped on a wet floor at work at [employer] early this morning. She is not taking anything for the pain. She did not her head no other symptoms such as fever vomiting diarrhea. She is not on anticoagulants. Associated Symptoms: None Exacerbated by: Movement Relieved by: Denies Similar symptoms previously: No Recently seen / treated by doctor: No - REPRODUCTIVE Reproductive: DENIES: : Past Medical History - General Information source: Patient - Social History Smoking Status: Never Smoker Chew tobacco use (# tins/day): No Frequency of alcohol use: None Drug Abuse: None Family History: Reviewed & Not Pertinent Patient has suicidal ideation: No Patient has homicidal ideation: No - Past Medical History Cardiac Medical History: Reports: Hx Hypertension, Hx Pulmonary Embolism Pulmonary Medical History: Reports: Hx Asthma Neurological Medical History: Reports: Hx Migraine, Hx Seizures Renal/ Medical History: Denies: Hx Peritoneal Dialysis Musculoskeletal Medical History: Reports Hx Arthritis Past Surgical History: Reports: Hx Neurologic Surgery - 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 - Immunizations Immunizations up to date: Yes Hx Diphtheria, Pertussis, Tetanus Vaccination: Yes - unk Vertical Provider Document - CONSTITUTIONAL Agree With Documented VS: Yes Exam Limitations: No Limitations General Appearance: WD/WN, No Apparent Distress - INFECTION CONTROL TRAVEL OUTSIDE OF THE [place] IN LAST 30 DAYS: No - HEENT HEENT: Atraumatic, Normocephalic - NECK Neck: Supple - RESPIRATORY Respiratory: Breath Sounds Normal, No Respiratory Distress - CARDIOVASCULAR Cardiovascular: Regular Rate - GI/ABDOMEN Gastrointestinal: Abdomen Soft - BACK Back: Normal Inspection - Complains of tailbone pain. No obvious deformity no swelling no erythema no ecchymosis no warmth good distal movement sensation - MUSCULOSKELETAL/EXTREMETIES Musculoskeletal/Extremeties: MAEW, FROM, Tender - Right knee tender to palpate no obvious deformity no erythema no swelling no warmth flexes and extends knee without problems - NEURO Level of Consciousness: Awake, Alert, Appropriate Motor/Sensory: No Motor Deficit - DERM Integumentary: Warm, Dry Course - Re-evaluation Re-evalutation: 06/17/19 12:28 Knee X-Ray 06/17/19 11:28 IMPRESSION: No evidence of acute bony abnormality. 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 06/17/19 12:43 Knee X-Ray 06/17/19 11:28 IMPRESSION: No evidence of acute bony abnormality. 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 Sacrum and Coccyx X-Ray 06/17/19 11:28 IMPRESSION: Limited evaluation of the distal sacrum secondary to body habitus and overlying bowel gas. Questionable fracture at the sacrococcygeal junction with ventral angulation of the coccyx. - Diagnostic Test Radiology reviewed: Reports reviewed Discharge - Discharge Clinical Impression: Right knee pain Qualifiers: Chronicity: acute Qualified Code(s): M25.561 - Pain in right knee Fall Qualifiers: Encounter type: initial encounter Qualified Code(s): W19.XXXA - Unspecified fall, initial encounter Fractured coccyx Qualifiers: Encounter type: initial encounter Fracture type: closed Qualified Code(s): S32.2XXA - Fracture of coccyx, initial encounter for closed fracture Condition: Stable Disposition: HOME, SELF-CARE Instructions: Coccyx Fracture ([facility]), Ice Packs ([facility]), Stool Softener ([facility]) Additional Instructions: *You have been evaluated for right knee pain and tailbone pain, fractured coccyx *Take Tylenol as indicated for the pain *Rest/Ice/Elevate your knee, ice packs to your tailbone, sit on cushioning for comfort *Follow up with your provider within 1 week for recheck *Return to ED for worsening condition, changes, needs Forms: Elevated Blood Pressure, Return to Work Referrals: SANTY CONTI MD [Primary Care Provider] - Follow up in 1 week EDWARD DELGADO JR DO [ACTIVE PROVISIONAL STAFF] - Follow up as needed BARRY CHRISTENSEN MD [ACTIVE PROVISIONAL STAFF] - Follow up as needed [facility] [Provider Group] - Follow up as needed
[2019-06-17 11:35] VITALS: BP 149/82
--- NOTE | 2019-06-17 12:25 | RADIOLOGY REPORT (SQ) ---
EXAM DESCRIPTION: KNEE RIGHT 4 VIEWS COMPLETED DATE/TIME: 06/17/2019 12:11 pm REASON FOR STUDY: fell knee and back pain COMPARISON: 05/11/2016 NUMBER OF VIEWS: Four views. TECHNIQUE: AP, lateral, and both oblique radiographic images acquired of the right knee. LIMITATIONS: None. FINDINGS: MINERALIZATION: Normal. BONES: No fracture dislocation. No suspicious osseous lesions. Degenerative changes with tricompart ment osteophytosis and mild to moderate joint space loss, greatest within the patellofemoral compartm ent. JOINT: No effusion. SOFT TISSUES: No soft tissue swelling. No radio-opaque foreign body. OTHER: No other significant finding. IMPRESSION: No evidence of acute bony abnormality. 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 TECHNICAL DOCUMENTATION: JOB ID: [id number] [employer]- All Rights Reserved Reading location - IP/workstation name: [email or web address]
--- NOTE | 2019-06-17 12:31 | RADIOLOGY REPORT (SQ) ---
EXAM DESCRIPTION: SACRUM AND COCCYX COMPLETED DATE/TIME: 06/17/2019 12:11 pm REASON FOR STUDY: fell knee and back pain COMPARISON: None. NUMBER OF VIEWS: Three views. TECHNIQUE: AP, lateral, and tilt views of the sacrum and coccyx. LIMITATIONS: Limited evaluation of the distal sacrum secondary to body habitus and overlying bowel g as. FINDINGS: MINERALIZATION: Normal. BONES: Limited evaluation. Questionable fracture at the sacrococcygeal junction with ventral angulat ion of the coccyx. No worrisome bone lesions. SOFT TISSUES: No soft tissue swelling. No foreign body. OTHER: No other significant finding. IMPRESSION: Limited evaluation of the distal sacrum secondary to body habitus and overlying bowel ga s. Questionable fracture at the sacrococcygeal junction with ventral angulation of the coccyx. TECHNICAL DOCUMENTATION: JOB ID: [id number] [employer]- All Rights Reserved Reading location - IP/workstation name: [email or web address]
== END 2019-06-17 12:53 | disposition home or self-care (01) ==
LOC: ER 11:19
DX: S32.2XXA Fracture of coccyx, initial encounter for closed fracture (principal); M25.561 Pain in right knee; W01.0XXA Fall on same level from slipping, tripping and stumbling without subsequent striking against object, initial encounter; I10 Essential (primary) hypertension; J45.909 Unspecified asthma, uncomplicated
CPT/HCPCS: 72220; 99283

== ENCOUNTER 2019-11-05 09:54 | Emergency (ER) | payer MEDICARE, MEDICAID ==
--- NOTE | 2019-11-05 10:13 | ER Document Report ---
ED Medical Screen (RME) - General Chief Complaint: Hip Pain Stated Complaint: RIGHT HIP PAIN, SWELLING Time Seen by Provider: 11/05/19 10:07 Primary Care Provider: SANTY CONTI MD [Primary Care Provider] - Follow up as needed Mode of Arrival: Ambulatory Information source: Patient Notes: 54-year-old female with history of asthma and PE presents to the emergency de partment with complaints of right thigh pain swelling and redness. Patient reports symptoms started approximately 1-1/2 weeks ago. She denies injury. Denies trauma. Denies recent trip. She denies fever vomiting diarrhea. Unable to fully evaluate thigh in pit. Patient denies pain to right calf. She does complain of some tenderness to the right anterior tib-fib. I have greeted and performed a rapid initial assessment of this patient. A comprehensive ED assessment and evaluation of the patient, analysis of test results and completion of the medical decision making process will be conducted by additional ED providers. TRAVEL OUTSIDE OF THE [place] IN LAST 30 DAYS: No - Related Data Allergies/Adverse Reactions: aspirin [Aspirin] Allergy (Verified 11/05/19 10:07) Past Medical History - Past Medical History Cardiac Medical History: Reports: Hx Hypertension, Hx Pulmonary Embolism Pulmonary Medical History: Reports: Hx Asthma Neurological Medical History: Reports: Hx Migraine, Hx Seizures Renal/ Medical History: Denies: Hx Peritoneal Dialysis Musculoskeltal Medical History: Reports Hx Arthritis Past Surgical History: Reports: Hx Neurologic Surgery - 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 - Immunizations Immunizations up to date: Yes Hx Diphtheria, Pertussis, Tetanus Vaccination: Yes - unk Physical Exam - Vital signs Vitals: Temp Pulse Resp BP Pulse Ox 97.9 F 75 18 145/91 H 100 11/05/19 10:11/05/19 10:11/05/19 10:11/05/19 10:00 11/05/19 10:00 Course - Vital Signs Vital signs: Temp Pulse Resp BP Pulse Ox 97.9 F 75 18 145/91 H 100 11/05/19 10:07 11/05/19 10:11/05/19 10:11/05/19 10:00 11/05/19 10:00 Doctor's Discharge - Discharge Clinical Impression: Shingles outbreak Condition: Stable Disposition: HOME, SELF-CARE Instructions: Shingles ([facility]) Additional Instructions: Return immediately for any new or worsening symptoms Followup with your primary care provider, call tomorrow to make a followup appointment Prescriptions: Lidocaine [Lidoderm 5% (700 mg) Transdermal Patch] 1 patch TP DAILY PRN #10 adh..patch PRN Reason: Hydrocodone/Acetaminophen [[place] 5-325 mg Tablet] 1 tab PO Q6 PRN #12 tablet PRN Reason: Valacyclovir HCl [Valtrex] 1,000 mg PO TID #42 tablet Referrals: SANTY CONTI MD [Primary Care Provider] - Follow up as needed
[2019-11-05] MEDS ORDERED: VALACYCLOVIR HCL 500 MG TABLET PO ONE (11:03)
--- NOTE | 2019-11-05 11:07 | ER Document Report ---
HPI - HPI Patient complains to provider of: Right thigh pain Time Seen by Provider: 11/05/19 10:07 Onset/Duration: Persistent Quality of pain: Achy Pain Level: 5 Context: Patient presents with right thigh pain for the past 2 days. Patient injury. Patient denies any fever. Patient states that she does have chronic back pain although she does not typically have leg pain in these locations. Patient complains of medial and lateral thigh tenderness. Associated Symptoms: denies: Fever Exacerbated by: Denies Relieved by: Denies Similar symptoms previously: No Recently seen / treated by doctor: No - ROS ROS below otherwise negative: Yes Systems Reviewed and Negative: Yes All other systems reviewed and negative - CONSTITUTIONAL Constitutional: DENIES: Fever, Chills - NEURO Neurology: DENIES: Weakness - GASTROINTESTINAL Gastrointestinal: DENIES: Nausea - URINARY Urinary: DENIES: Dysuria - REPRODUCTIVE Reproductive: DENIES: : - MUSCULOSKELETAL Musculoskeletal: REPORTS: Extremity pain - DERM Skin Color: Normal Skin Problems: None Past Medical History - General Information source: Patient - Social History Smoking Status: Never Smoker Chew tobacco use (# tins/day): No Frequency of alcohol use: None Drug Abuse: None Occupation: None Family History: Reviewed & Not Pertinent Patient has homicidal ideation: No - Past Medical History Cardiac Medical History: Reports: Hx Hypertension, Hx Pulmonary Embolism Pulmonary Medical History: Reports: Hx Asthma Neurological Medical History: Reports: Hx Migraine, Hx Seizures Renal/ Medical History: Denies: Hx Peritoneal Dialysis Musculoskeletal Medical History: Reports Hx Arthritis Past Surgical History: Reports: Hx Section - x2, Hx Neurologic Surgery - 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, Hx Orthopedic Surgery - left shoulder nerve stimulator, Hx Vascular Surgery - PE thrombectomy - Immunizations Immunizations up to date: Yes Hx Diphtheria, Pertussis, Tetanus Vaccination: Yes - unk Vertical Provider Document - CONSTITUTIONAL Agree With Documented VS: Yes Exam Limitations: No Limitations General Appearance: WD/WN, No Apparent Distress - INFECTION CONTROL TRAVEL OUTSIDE OF THE [place] IN LAST 30 DAYS: No - HEENT HEENT: Atraumatic, Normocephalic - NECK Neck: Normal Inspection - RESPIRATORY Respiratory: Breath Sounds Normal, No Respiratory Distress - CARDIOVASCULAR Cardiovascular: Regular Rate, Regular Rhythm - BACK Back: Normal Inspection - MUSCULOSKELETAL/EXTREMETIES Musculoskeletal/Extremeties: MAEW, Tender - Patient with tenderness to medial and lateral aspect of right thigh, patient with a vesicular erythematous lesions to medial and lateral aspect of the thigh, No Edema - NEURO Level of Consciousness: Awake, Alert, Appropriate Motor/Sensory: No Motor Deficit - DERM Integumentary: Warm, Dry, Rash - Erythematous vesicular lesions to right thigh Course - Re-evaluation Re-evalutation: 11/05/19 11:04 Patient with skin lesions worrisome for shingles, discussed management of symptoms. Patient encouraged to recheck with her primary doctor. - Vital Signs Vital signs: Temp Pulse Resp BP Pulse Ox 97.9 F 75 18 145/91 H 100 11/05/19 10:07 11/05/19 10:00 11/05/19 10:00 11/05/19 10:00 11/05/19 10:00 Discharge - Discharge Clinical Impression: Shingles outbreak Qualifiers: Herpes zoster complications: without complications Qualified Code(s): B02.9 - Zoster without complications Condition: Stable Disposition: HOME, SELF-CARE Instructions: Shingles ([facility]) Additional Instructions: Return immediately for any new or worsening symptoms Followup with your primary care provider, call tomorrow to make a followup appointment Prescriptions: Lidocaine [Lidoderm 5% (700 mg) Transdermal Patch] 1 patch TP DAILY PRN #10 adh..patch PRN Reason: Hydrocodone/Acetaminophen [[place] 5-325 mg Tablet] 1 tab PO Q6 PRN #12 tablet PRN Reason: Valacyclovir HCl [Valtrex] 1,000 mg PO TID #42 tablet Referrals: SANTY CONTI MD [Primary Care Provider] - Follow up as needed
[2019-11-05 11:18] VITALS: BP 130/90
== END 2019-11-05 11:18 | disposition home or self-care (01) ==
LOC: ER 09:54
DX: B02.9 Zoster without complications (principal); M79.651 Pain in right thigh; M54.9 Dorsalgia, unspecified; G89.29 Other chronic pain; I10 Essential (primary) hypertension; J45.909 Unspecified asthma, uncomplicated
CPT/HCPCS: 99283; A9270

== ENCOUNTER 2020-03-15 15:42 | Emergency (ER) | payer MEDICARE, MEDICAID ==
[2020-03-15] MEDS ORDERED: ONDANSETRON HCL INJ/PF 4 MG/2 ML SDV IV ONE (17:24)
--- NOTE | 2020-03-15 17:25 | ER Document Report ---
ED Medical Screen (RME) - General Chief Complaint: Shortness Of Breath Stated Complaint: SHORT OF BREATH,CHEST PAIN Primary Care Provider: SANTY CONTI MD [Primary Care Provider] - Follow up as needed TRAVEL OUTSIDE OF THE [place] IN LAST 30 DAYS: No - HPI Notes: 03/15/20 17:24 54-year-old female with history of asthma, seizures to the emergency department with complaints of acute onset chest tightness, shortness of breath, chest pain that began this morning upon waking up. She also admits to headache and nausea. Denies any fevers. Admits to slight cough. Denies any sore throat or body aches. She does not think that she has been in exposure with a COVID-19 positive patient but she is not sure. Denies any leg swelling, back pain, urinary complaints, abdominal pain. The patient was evaluated during the global COVID 19 pandemic, and that diagnosis was suspected/considered upon their initial presentation. Their evaluation, treatment, and testing was consistent with current guidelines for patients who present with complaints or symptoms that may be related to COVID-19. I performed a brief medical screening exam on the patient determined that the patient needs further evaluation and management by main side provider. I have placed initial orders to help expedite care. - Related Data Allergies/Adverse Reactions: aspirin [Aspirin] Allergy (Verified 11/05/19 10:07) Past Medical History - Past Medical History Cardiac Medical History: Reports: Hx Hypertension, Hx Pulmonary Embolism Pulmonary Medical History: Reports: Hx Asthma Neurological Medical History: Reports: Hx Migraine, Hx Seizures Renal/ Medical History: Denies: Hx Peritoneal Dialysis Musculoskeltal Medical History: Reports Hx Arthritis Past Surgical History: Reports: Hx Section - x2, Hx Neurologic Surgery - 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, Hx Orthopedic Surgery - left shoulder nerve stimulator, Hx Vascular Surgery - PE thrombectomy - Immunizations Immunizations up to date: Yes Hx Diphtheria, Pertussis, Tetanus Vaccination: Yes - unk Physical Exam - Vital signs Vitals: Temp Pulse Resp BP Pulse Ox 98.3 F 77 18 118/66 96 03/15/20 16:29 03/15/20 16:29 03/15/20 16:29 03/15/20 16:29 03/15/20 16:29 Course - Vital Signs Vital signs: Temp Pulse Resp BP Pulse Ox 98.3 F 77 18 118/66 96 03/15/20 16:29 03/15/20 16:29 03/15/20 16:29 03/15/20 16:29 03/15/20 16:29 Doctor's Discharge - Discharge Referrals: SANTY CONTI MD [Primary Care Provider] - Follow up as needed
--- NOTE | 2020-03-15 17:54 | EKG REPORT ---
SEVERITY:- ABNORMAL ECG - SINUS RHYTHM NONSPECIFIC T ABNORMALITIES, ANT-LAT LEADS : Confirmed by: Melchor Witt MD 15-Mar-2020 17:53:14
--- NOTE | 2020-03-15 18:05 | ER Document Report ---
ED General - General Chief Complaint: Shortness Of Breath Stated Complaint: SHORT OF BREATH,CHEST PAIN Time Seen by Provider: 03/15/20 18:04 Primary Care Provider: SANTY CONTI MD [Primary Care Provider] - Follow up as needed TRAVEL OUTSIDE OF THE [place] IN LAST 30 DAYS: No - HPI Notes: 54-year-old female presents with chest pain. Patient states that she has chest pain every day, states it is usually from gas. However this morning she woke up and had increase in chest pain. It is in the center of her chest, it is described as sharp, states that it goes up and down to the center of her chest and stops at the epigastric area. Pain has been constant since its onset. No exertional symptoms. She states that since the onset of chest pain she states she has had a hard time breathing. She also developed a headache. She denies cough, fever, known COVID exposures. Denies leg swelling, denies cardiac history. - Related Data Allergies/Adverse Reactions: aspirin [Aspirin] Allergy (Verified 11/05/19 10:07) Past Medical History - General Information source: Patient - Social History Smoking Status: Never Smoker Frequency of alcohol use: None Drug Abuse: None Family History: Reviewed & Not Pertinent - Past Medical History Cardiac Medical History: Reports: Hx Hypertension, Hx Pulmonary Embolism Pulmonary Medical History: Reports: Hx Asthma Neurological Medical History: Reports: Hx Migraine, Hx Seizures Renal/ Medical History: Denies: Hx Peritoneal Dialysis Musculoskeletal Medical History: Reports Hx Arthritis Past Surgical History: Reports: Hx Section - x2, Hx Neurologic Surgery - 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, Hx Orthopedic Surgery - left shoulder nerve stim ulator, Hx Vascular Surgery - PE thrombectomy - Immunizations Immunizations up to date: Yes Hx Diphtheria, Pertussis, Tetanus Vaccination: Yes - unk Review of Systems - Review of Systems Constitutional: denies: Fever EENT: No symptoms reported Cardiovascular: Chest pain Respiratory: Hurts to breathe, Short of breath Gastrointestinal: denies: Abdominal pain Genitourinary: No symptoms reported Musculoskeletal: denies: Muscle pain Skin: No symptoms reported Neurological/Psychological: Headaches Physical Exam - Vital signs Vitals: Temp Pulse Resp BP Pulse Ox 98.3 F 77 18 118/66 96 03/15/20 16:29 03/15/20 16:29 03/15/20 16:29 03/15/20 16:29 03/15/20 16:29 - General General appearance: Appears well, Alert In distress: None - HEENT Head: Normocephalic, Atraumatic Eyes: No: Scleral icterus Extraocular movements intact: Yes Pupils: PERRL Neck: Normal, Other - No JVD - Respiratory Chest status: Tender - Parasternal Breath sounds: Normal. No: Wheezing Chest palpation: Other - Has implanted medication device to left upper chest wall, patient states that this is for her seizures - Cardiovascular Rhythm: Regular Heart sounds: Normal auscultation Pulses: Normal: Dorsalis pedis - Abdominal Inspection: Obese Tenderness: Nontender - Extremities General lower extremity: No: Edema - Neurological Neuro grossly intact: Yes Cognition: Normal Orientation: AAOx4 Motor strength normal: LUE, RUE, LLE, RLE - Psychological Associated symptoms: Normal affect - Skin Skin Temperature: Warm Course - Re-evaluation Re-evalutation: 54-year-old female with central chest pain, has a reported history of this occurring daily, no exertional symptoms. EKG has some T wave changes, however this appears to be similar to previous. Constant since its onset. Her chest pain does sound atypical in nature. She additionally does have some tenderness along the chest wall. Lungs are clear, no peripheral edema. Possible this is GI related in origin, viral illness possible, lower concern for cardiac chest pain at this point however work-up including BNP on going. Will start with GI based medications to see if this helps her symptoms. Patient is allergic to aspirin. 03/15/20 19:45 Labs reviewed. No leukocytosis or left shift. No acute anemia. Electrolytes within normal limits. Creatinine within normal limits. Troponin is negative, t his was taken well beyond 3 hours after her onset of pain. There is no elevation of BNP. LFTs, T bili and lipase are all within normal limits as well. Per radiology, chest x-ray is negative for acute finding. 03/15/20 22:23 Troponin negative x2 03/15/20 22:25 Patient reports resolution of her symptoms. I discussed with her work-up, overall reassuring today. Encouraged her have close follow-up with her primary care doctor, encouraged her to discuss outpatient stress testing. Return preca utions given, patient stable at time of discharge. - Vital Signs Vital signs: Temp Pulse Resp BP Pulse Ox 98.3 F 77 18 118/66 96 03/15/20 16:29 03/15/20 16:29 03/15/20 16:29 03/15/20 16:29 03/15/20 16:29 - Laboratory Result Diagrams: 03/15/20 18:15 03/15/20 18:15 Laboratory results interpreted by me: 03/15/20 18:15 Carbon Dioxide 33 H Total Protein 8.7 H - Diagnostic Test Radiology reviewed: Image reviewed, Reports reviewed - EKG Interpretation by Me Additional EKG results interpreted by me: EKG as interpreted by me. Normal sinus rhythm, rate 78. Narrow QRS, QTC within normal limits. There are nonspecific T wave abnormalities. Flattening in I and aVL, which is present on previous EKG. T wave inversion V2, V3, V4, present on previous EKG. Overall no major changes compared to EKG dated 04/14/2019 Discharge - Discharge Clinical Impression: Atypical chest pain Disposition: HOME, SELF-CARE Additional Instructions: Please have close follow-up with your primary care doctor, discuss outpatient cardiac stress testing. Continue all medications as prescribed. He may continue [id number] acid reducing medication. Return to the emergency department for any concerning worsening symptoms. Referrals: SANTY CONTI MD [Primary Care Provider] - Follow up as needed
[2020-03-15] MEDS ORDERED: FAMOTIDINE INJ/PF 20 MG/2 ML SDV IV ONE (18:20)
[2020-03-15] MEDS ORDERED: LIDOCAINE 2% VISCOUS SOLN 15 ML UDCUP PO ONE (18:21)
[2020-03-15] MEDS ORDERED: MAG HYDROX/AL HYDROX/SIMETH SUSP 30 ML UDCUP PO ONE (18:21)
--- NOTE | 2020-03-15 18:25 | RADIOLOGY REPORT (SQ) ---
EXAM DESCRIPTION: CHEST SINGLE VIEW IMAGES COMPLETED DATE/TIME: 03/15/2020 5:56 pm REASON FOR STUDY: chest tightness COMPARISON: 04/14/2019 EXAM PARAMETERS: NUMBER OF VIEWS: One view. TECHNIQUE: Single frontal radiographic view of the chest acquired. RADIATION DOSE: NA LIMITATIONS: None. FINDINGS: LUNGS AND PLEURA: No opacities, masses or pneumothorax. No pleural effusion. MEDIASTINUM AND HILAR STRUCTURES: No masses. Contour normal. HEART AND VASCULAR STRUCTURES: Heart normal in size. Normal vasculature. BONES: No acute findings. HARDWARE: Electronic device overlies the left chest, likely some type of cervical stimulator. OTHER: No other significant finding. IMPRESSION: NO ACUTE RADIOGRAPHIC FINDING IN THE CHEST. TECHNICAL DOCUMENTATION: JOB ID: [id number] [employer]- All Rights Reserved Reading location - IP/workstation name: [email or web address]
[2020-03-15 18:35] LABS: ABSOLUTE BASOPHILS # (AUTO) 0.1 10^3/uL (0.0-0.2); ABSOLUTE EOSINOPHILS # (AUTO) 0.2 10^3/uL (0.0-0.6); ABSOLUTE LYMPHOCYTES (AUTO) 1.8 10^3/uL (0.5-4.7); ABSOLUTE MONOCYTES (AUTO) 0.4 10^3/uL (0.1-1.4); ABSOLUTE NEUT (AUTO) 5.3 10^3/uL (1.7-8.2); BASOPHILS % (AUTO) 0.8 % (0-2); EOSINOPHILS % (AUTO) 2.9 % (0-6); HEMATOCRIT 37.2 % (36.0-47.0); HEMOGLOBIN 12.5 g/dL (12.0-15.5); LYMPHOCYTES % (AUTO) 22.8 % (13-45); MEAN CORPUSCULAR HEMOGLOBIN 30.5 pg (27.0-33.4); MEAN CORPUSCULAR HGB CONC 33.7 g/dL (32.0-36.0); MEAN CORPUSCULAR VOLUME 91 fl (80-97); MONOCYTES % (AUTO) 4.6 % (3-13); PLATELET COUNT 302 10^3/uL (150-450); RED BLOOD COUNT 4.11 10^6/uL (3.72-5.28); RED CELL DISTRIBUTION WIDTH 13.2 % (11.5-14.0); SEGMENTED NEUTROPHILS % (AUTO) 68.9 % (42-78); TOTAL CELLS COUNTED % (AUTO) 100 %; WHITE BLOOD COUNT 7.7 10^3/uL (4.0-10.5)
[2020-03-15 18:58] LABS: ALBUMIN 4.4 g/dL (3.5-5.0); ALKALINE PHOSPHATASE 112 U/L (38-126); ANION GAP 8 (5-19); ASPARTATE AMINO TRANSFERASE 24 U/L (14-36); BILIRUBIN,DIRECT 0.2 mg/dL (0.0-0.4); BILIRUBIN,TOTAL 0.5 mg/dL (0.2-1.3); BLOOD UREA NITROGEN 16 mg/dL (7-20); CALCIUM 9.7 mg/dL (8.4-10.2); CARBON DIOXIDE 33 mmol/L (22-30); CHLORIDE 98 mmol/L (98-107); GLUCOSE 93 mg/dL (75-110); POTASSIUM 3.7 mmol/L (3.6-5.0); TOTAL PROTEIN 8.7 g/dL (6.3-8.2)
[2020-03-15 19:07] LABS: NT PRO BNP 122 pg/mL (<125)
[2020-03-15 19:10] LABS: TROPONIN I < 0.012 ng/mL
[2020-03-15 22:36] VITALS: BP 124/70
== END 2020-03-15 22:36 | disposition home or self-care (01) ==
LOC: ER 15:42
DX: R07.89 Other chest pain (principal); R06.02 Shortness of breath; R51 Headache; E66.9 Obesity, unspecified; I10 Essential (primary) hypertension; Z88.6 Allergy status to analgesic agent
CPT/HCPCS: 93005; 99285; 96374; 96375; 36415; 83690; 85025; 80053; 84484; 83880; 71045; 93010; J3490; A9270; J2405; S0028

== ENCOUNTER 2020-05-30 17:30 | Emergency (ER) | payer MEDICARE, MEDICAID ==
--- NOTE | 2020-05-30 17:55 | ER Document Report ---
ED Medical Screen (RME) - General Chief Complaint: Cough Stated Complaint: COUGH,CONGESTION,NAUSEA Time Seen by Provider: 05/30/20 17:39 Primary Care Provider: SANTY CONTI MD [Primary Care Provider] - Follow up as needed TRAVEL OUTSIDE OF THE [place] IN LAST 30 DAYS: No - HPI Notes: Patient is a 55 y/o female with a hx of HTN, and seizure disorder who presents with chest pain and cough. Patient states she has had intermittent substernal chest pain for the past 2-3 weeks. She reports productive cough with yellow sputum, shortness of breath, diffuse abdominal pain and nausea. Patient tested positive for COVID in early April and tested negative at the end of the month. She denies fever, vomiting and diarrhea. - Related Data Allergies/Adverse Reactions: aspirin [Aspirin] Allergy (Verified 11/05/19 10:07) Past Medical History - Social History Frequency of alcohol use: None - Past Medical History Cardiac Medical History: Reports: Hx Hypertension, Hx Pulmonary Embolism Pulmonary Medical History: Reports: Hx Asthma Neurological Medical History: Reports: Hx Migraine, Hx Seizures Renal/ Medical History: Denies: Hx Peritoneal Dialysis Musculoskeltal Medical History: Reports Hx Arthritis Past Surgical History: Reports: Hx Section - x2, Hx Neurologic Surgery - 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, Hx Orthopedic Surgery - left shoulder nerve stimulator, Hx Vascular Surgery - PE thrombectomy - Immunizations Immunizations up to date: Yes Hx Diphtheria, Pertussis, Tetanus Vaccination: Yes - unk Physical Exam - Vital signs Vitals: Temp Pulse Resp BP Pulse Ox 98.4 F 85 20 128/60 H 99 05/30/20 17:38 05/30/20 17:38 05/30/20 17:38 05/30/20 17:38 05/30/20 17:38 - Respiratory Respiratory status: No respiratory distress Breath sounds: Normal Course - Re-evaluation Re-evalutation: I have greeted and performed a rapid initial assessment of this patient. A comprehensive ED assessment and evaluation of the patient, analysis of test results and completion of medical decision making process will be conducted by an additional ED providers. - Vital Signs Vital signs: Temp Pulse Resp BP Pulse Ox 98.4 F 85 20 128/60 H 99 05/30/20 17:38 05/30/20 17:38 05/30/20 17:38 05/30/20 17:38 05/30/20 17:38 Doctor's Discharge - Discharge Referrals: SANTY CONTI MD [Primary Care Provider] - Follow up as needed
--- NOTE | 2020-05-30 18:08 | RADIOLOGY REPORT (SQ) ---
EXAM DESCRIPTION: CHEST SINGLE VIEW IMAGES COMPLETED DATE/TIME: 05/30/2020 5:55 pm REASON FOR STUDY: chest pain, cough COMPARISON: Chest radiographs 03/15/2020. EXAM PARAMETERS: NUMBER OF VIEWS: One view. TECHNIQUE: Single frontal radiographic view of the chest acquired. RADIATION DOSE: NA LIMITATIONS: None. FINDINGS: LUNGS AND PLEURA: Unchanged left basilar scarring. No new opacities, masses or pneumothor ax. No pleural effusion. MEDIASTINUM AND HILAR STRUCTURES: No masses. Contour normal. HEART AND VASCULAR STRUCTURES: Heart normal in size. Normal vasculature. BONES: No acute findings. HARDWARE: Left chest wall cervical neurostimulator device. OTHER: No other significant finding. IMPRESSION: Unchanged chest. No acute pulmonary findings. TECHNICAL DOCUMENTATION: JOB ID: [id number] [employer]- All Rights Reserved Reading location - IP/workstation name: [email or web address]
[2020-05-30 20:45] LABS: ABSOLUTE BASOPHILS # (AUTO) 0.1 10^3/uL (0.0-0.2); ABSOLUTE EOSINOPHILS # (AUTO) 0.3 10^3/uL (0.0-0.6); ABSOLUTE LYMPHOCYTES (AUTO) 1.9 10^3/uL (0.5-4.7); ABSOLUTE MONOCYTES (AUTO) 0.5 10^3/uL (0.1-1.4); ABSOLUTE NEUT (AUTO) 6.5 10^3/uL (1.7-8.2); BASOPHILS % (AUTO) 0.7 % (0-2); EOSINOPHILS % (AUTO) 3.1 % (0-6); HEMATOCRIT 33.4 % (36.0-47.0); HEMOGLOBIN 11.3 g/dL (12.0-15.5); LYMPHOCYTES % (AUTO) 20.6 % (13-45); MEAN CORPUSCULAR HEMOGLOBIN 30.5 pg (27.0-33.4); MEAN CORPUSCULAR VOLUME 90 fl (80-97); MONOCYTES % (AUTO) 4.9 % (3-13); PLATELET COUNT 282 10^3/uL (150-450); RED BLOOD COUNT 3.71 10^6/uL (3.72-5.28); RED CELL DISTRIBUTION WIDTH 13.6 % (11.5-14.0); SEGMENTED NEUTROPHILS % (AUTO) 70.7 % (42-78); TOTAL CELLS COUNTED % (AUTO) 100 %; WHITE BLOOD COUNT 9.2 10^3/uL (4.0-10.5)
[2020-05-30 20:51] LABS: APPEARANCE,URINE CLEAR; BILIRUBIN,URINE NEGATIVE (NEGATIVE); COLOR,URINE YELLOW; GLUCOSE, URINE NEGATIVE (NEGATIVE); KETONES,URINE NEGATIVE (NEGATIVE); LEUKOCYTE ESTERASE,URINE SMALL (NEGATIVE); NITRITE,URINE NEGATIVE (NEGATIVE); PROTEIN,URINE NEGATIVE (NEGATIVE); URINE SPECIFIC GRAVITY 1.014; UROBILINOGEN,URINE NEGATIVE mg/dL (<2.0)
[2020-05-30 21:02] LABS: ALBUMIN 4.1 g/dL (3.5-5.0); ALKALINE PHOSPHATASE 104 U/L (38-126); ANION GAP 10 (5-19); ASPARTATE AMINO TRANSFERASE 22 U/L (14-36); BILIRUBIN,DIRECT 0.2 mg/dL (0.0-0.4); BILIRUBIN,TOTAL 0.5 mg/dL (0.2-1.3); BLOOD UREA NITROGEN 11 mg/dL (7-20); CALCIUM 9.3 mg/dL (8.4-10.2); CARBON DIOXIDE 29 mmol/L (22-30); CHLORIDE 99 mmol/L (98-107); GLUCOSE 88 mg/dL (75-110); POTASSIUM 3.6 mmol/L (3.6-5.0); TOTAL PROTEIN 8.2 g/dL (6.3-8.2)
[2020-05-30] MEDS ORDERED: IPRATROPIUM/ALBUTEROL 0.5-2.5 MG/3 ML AMPUL NEB ONE (21:12)
[2020-05-30] MEDS ORDERED: PREDNISONE 20 MG TABLET PO ONE (21:12)
[2020-05-30] MEDS ORDERED: ONDANSETRON 4 MG TAB.RAPDIS PO ONE (21:12)
--- NOTE | 2020-05-30 21:14 | ER Document Report ---
ED General - General Chief Complaint: Cough Stated Complaint: COUGH,CONGESTION,NAUSEA Time Seen by Provider: 05/30/20 17:39 Primary Care Provider: SANTY CONTI MD [Primary Care Provider] - Follow up in 3-5 days Notes: Patient is a 55-year-old female that comes to the emergency department for chief complaint of cough for the past 2 weeks. She states that she has yellow sputum production, pain with coughing episodes, and intermittent nausea. She also reports frequent wheezing. She denies specific abdominal pain. She denies current chest pain, she denies fever. She states she tested positive for COVID- 19 in early April and then tested negative over 2 weeks ago. Patient has a history of asthma, states that her nebulizer machine is not working. Remaining medical history includes hypertension, obesity, "kidney reflux", seizure disorder and she follows with neurology. She denies any other medical history, denies smoking. TRAVEL OUTSIDE OF THE [place] IN LAST 30 DAYS: No - Related Data Allergies/Adverse Reactions: aspirin [Aspirin] Allergy (Verified 11/05/19 10:07) Past Medical History - General Information source: Patient - Social History Smoking Status: Never Smoker Frequency of alcohol use: None Drug Abuse: None Lives with: Family Family History: Reviewed & Not Pertinent - Past Medical History Cardiac Medical History: Reports: Hx Hypertension, Hx Pulmonary Embolism Pulmonary Medical History: Reports: Hx Asthma Neurological Medical History: Reports: Hx Migraine, Hx Seizures Renal/ Medical History: Denies: Hx Peritoneal Dialysis Musculoskeletal Medical History: Reports Hx Arthritis Past Surgical History: Reports: Hx Section - x2, Hx Neurologic Surgery - 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, Hx Orthopedic Surgery - left shoulder nerve stimulator, Hx Vascular Surgery - PE thrombectomy - Immunizations Immunizations up to date: Yes Hx Diphtheria, Pertussis, Tetanus Vaccination: Yes - unk Review of Systems - Review of Systems Constitutional: See HPI EENT: No symptoms reported Cardiovascular: No symptoms reported Respiratory: See HPI Gastrointestinal: No symptoms reported Genitourinary: No symptoms reported Female Genitourinary: No symptoms reported Musculoskeletal: No symptoms reported Skin: No symptoms reported Hematologic/Lymphatic: No symptoms reported Neurological/Psychological: No symptoms reported Physical Exam - Vital signs Vitals: Temp Pulse Resp BP Pulse Ox 98.4 F 85 20 128/60 H 99 05/30/20 17:38 05/30/20 17:38 05/30/20 17:38 12/13/20 17:38 05/30/20 17:38 - Notes Notes: GENERAL: Alert, interacts well. No acute distress. HEAD: Normocephalic, atraumatic. EYES: Pupils equal, round, and reactive to light. Extraocular movements intact. ENT: Oral mucosa moist, tongue midline. Oropharynx unremarkable. Airway patent. Nares patent, sinuses non-tender, ear canals unremarkable, TM's intact. NECK: Full range of motion. Supple. Trachea midline. No lymphadenopathy. LUNGS: Occasional tight cough, expiratory wheezes scattered throughout, no rales or rhonchi. No tachypnea or respiratory distress. HEART: Regular rate and rhythm. No murmur ABDOMEN: Soft, non-tender. Non-distended. EXTREMITIES: Moves all 4 extremities spontaneously. No edema, normal radial and dorsalis pedis pulses bilaterally. No cyanosis. BACK: no cervical, thoracic, lumbar midline tenderness. No saddle anesthesia, normal distal neurovascular exam. Moves all extremities in full range of motion. NEUROLOGICAL: Alert and oriented x3. Normal speech. Cranial nerves II through XII grossly intact. Strength 5/5 in all extremities. PSYCH: Normal affect, normal mood. SKIN: Warm, dry, normal turgor. No rashes or lesions noted. Course - Re-evaluation Re-evalutation: Patient with occasional cough and expiratory wheezes on my exam. After DuoNeb and steroids this completely resolved. Patient states he feels much better on reevaluation. CBC, chemistry unremarkable, troponin is not elevated, chest x- ray unremarkable, EKG unremarkable. Overall evaluation is consistent with asthma exacerbation. Urine shows possible infection. I discussed with patient, she reports urinary frequency and feels like she is getting a UTI therefore she will be treated for this. She was covered with doxycycline because of her respiratory symptoms as well. Patient is requesting refill of albuterol nebulizer vials and albuterol inhaler. Discussed follow-up and return precautions. Patient states appreciation and agreement. Stable and well- appearing at time of discharge. - Vital Signs Vital signs: Temp Pulse Resp BP Pulse Ox 97.8 F 80 18 136/66 H 99 05/30/20 23:08 05/30/20 21:51 05/30/20 21:51 05/30/20 21:51 05/30/20 21:51 - Laboratory Results Result Diagrams: 12/13/20 20:05 05/30/20 20:05 Laboratory Results Interpreted: 05/30/20 05/30/20 19:45 20:05 RBC 3.71 L Hgb 11.3 L Hct 33.4 L Ur Leukocyte Esterase SMALL H Critical Laboratory Results Reviewed: No Critical Results - Radiology Results Critical Radiology Results Reviewed: No Critical Results - EKG Interpretation by Me Additional EKG results interpreted by me: EKG shows sinus rhythm at a rate of 80, QTc 471, normal axis. T wave inversions anteriorly, no ST segment changes. The same T wave inversions were noted on previous EKG without significant change. Discharge - Discharge Clinical Impression: Productive cough, Wheezing, Urinary frequency Condition: Critical Disposition: HOME, SELF-CARE Additional Instructions: Your evaluation is most consistent with bronchitis and asthma exacerbation. Take the prednisone as prescribed, use the albuterol inhaler with the spacer, use the albuterol nebulizer if needed. Based on your urinary symptoms and urine test we are placing you on an antibiotic for this as well. Follow-up with primary care. Return if you worsen including difficulty breathing, spiking fevers, vomiting, or any other concerning or worsening symptoms. Prescriptions: Albuterol Sulfate [Proventil 0.5% Neb 2.5 mg/0.5 ml Vial.neb] 2.5 mg NEB Q4HP PRN #30 vial.neb PRN Reason: Prednisone [Deltasone 20 mg Tablet] 3 tab PO DAILY 5 Days #15 tablet Albuterol Sulfate [Proair HFA Inhalation Aerosol 8.5 gm MDI] 2 puff IH Q4H PRN #1 mdi PRN Reason: Doxycycline Hyclate [Vibramycin 100 mg Tablet] 100 mg PO BID 7 Days #14 tablet Referrals: SANTY CONTI MD [Primary Care Provider] - Follow up in 3-5 days
[2020-05-30 21:52] VITALS: BP 136/66
--- NOTE | 2020-05-31 00:23 | EKG REPORT ---
SEVERITY:- ABNORMAL ECG - SINUS RHYTHM ABNORMAL T, CONSIDER ISCHEMIA, ANTERIOR LEADS : Confirmed by: David Portillo 31-May-2020 00:23:22
== END 2020-05-30 22:50 | disposition home or self-care (01) ==
LOC: ER 17:30
DX: J45.909 Unspecified asthma, uncomplicated (principal); R05 Cough; R35.0 Frequency of micturition; R11.0 Nausea; I10 Essential (primary) hypertension; Z86.19 Personal history of other infectious and parasitic diseases; Z88.8 Allergy status to other drugs, medicaments and biological substances
CPT/HCPCS: 93005; 94640; 99285; 36415; 87086; 83690; 85025; 80053; 81001; 84484; 71045; 93010; A9270 ×2; J7512; S0119